=== PATIENT | female | born 1930 | race Caucasian/White ===

== ENCOUNTER → 2018-03-27 | Outpatient (CLI) | payer MEDICARE, OTHER ==
[2018-03-27 17:31] LABS: HEMATOCRIT 33.3 % (36.0-47.0); HEMOGLOBIN 10.4 g/dL (12.0-15.5); MEAN CORPUSCULAR HEMOGLOBIN 27.1 pg (27.0-33.4); MEAN CORPUSCULAR HGB CONC 31.3 g/dL (32.0-36.0); MEAN CORPUSCULAR VOLUME 87 fl (80-97); PLATELET COUNT 408 10^3/uL (150-450); RED BLOOD COUNT 3.84 10^6/uL (3.72-5.28); RED CELL DISTRIBUTION WIDTH 16.8 % (11.5-14.0); WHITE BLOOD COUNT 8.7 10^3/uL (4.0-10.5)
== END ==
LOC: OD 16:43
PROVIDERS: ATTEND Internal Medicine Nephrology
DX: N18.9 Chronic kidney disease, unspecified (principal)
CPT/HCPCS: 36415; 85027

== ENCOUNTER 2018-04-05 19:46 | Emergency (ER) | payer MEDICARE, OTHER ==
--- NOTE | 2018-04-05 20:51 | ER Document Report ---
ED General - General Chief Complaint: Passed Out Prior to Arrival Stated Complaint: DIZZY/LIGHT HEADED Time Seen by Provider: 04/05/18 20:14 Notes: Patient is an 87-year-old female with a past medical history of T-cell lymphoma , hypertension, recurrent episodes of syncope, chronic kidney disease, known history of chronic anemia who presents after having an episode of syncope while at dinner tonight. Family at the bedside does provide majority of the history as the patient initially seems to either not recall what happened or denies that anything is wrong. Family reports that the patient would intermittently hold her head in her hands while at the dinner table tonight, appeared to be getting intermittently lightheaded. They state that the patient looked like she went to get out of her chair, go to the living room and sit in her recliner. They attempted to help her stand up and at that point she stated that she felt very unwell, they sat her back down and she apparently lost consciousness. This lasted for approximately 1-2 minutes and spontaneously resolved. Since that time the patient has returned to her baseline without intervention. Daughter at the bedside states that the patient has had several episodes similar to this in the past, most recently approximately 6 months ago but has never had a workup. She does state that she was concerned tonight because the patient seemed to appear more ill prior to and during the episode that she had in the past. She has no known history of congestive heart failure. The patient currently denies symptoms of any kind. She repeatedly states that she does not want to be here, feels like she should not have, and would like to go home. Family did not note that anything seems to trigger these episodes. They do resolve spontaneously. TRAVEL OUTSIDE OF THE [place] IN LAST 30 DAYS: No Past Medical History - General Information source: Patient - Social History Smoking Status: Former Smoker Frequency of alcohol use: None Drug Abuse: None Lives with: Family Family History: Reviewed & Not Pertinent Patient has suicidal ideation: No Patient has homicidal ideation: No Renal/ Medical History: Denies: Hx Peritoneal Dialysis Review of Systems - Review of Systems Notes: Constitutional: Negative for fever. HENT: Negative for sore throat. Eyes: Negative for visual changes. Cardiovascular: Negative for chest pain. Positive for syncope Respiratory: Negative for shortness of breath. Gastrointestinal: Negative for abdominal pain, vomiting or diarrhea. Genitourinary: Negative for dysuria. Musculoskeletal: Negative for back pain. Skin: Negative for rash. Neurological: Negative for headaches, weakness or numbness. 10 point ROS negative except as marked above and in HPI. Physical Exam - Vital signs Vitals: Pulse Ox 99 04/05/18 19:52 Interpretation: Normal Notes: PHYSICAL EXAMINATION: GENERAL: Well-appearing, well-nourished and in no acute distress. HEAD: Atraumatic, normocephalic. EYES: Pupils equal round and reactive to light, extraocular movements intact, sclera anicteric, conjunctiva are normal. ENT: nares patent, oropharynx clear without exudates. Moderately dry mucous membranes. NECK: Normal range of motion, supple without lymphadenopathy LUNGS: Breath sounds clear to auscultation bilaterally and equal. No wheezes rales or rhonchi. HEART: Regular rate and rhythm, 3 out of 6 systolic ejection murmur ABDOMEN: Soft, nontender, normoactive bowel sounds. No guarding, no rebound. No masses appreciated. EXTREMITIES: Normal range of motion, no pitting or edema. No cyanosis. NEUROLOGICAL: No focal neurological deficits. Moves all extremities spontaneously and on command. PSYCH: Alert, oriented. SKIN: Warm, Dry, normal turgor, no rashes or lesions noted. Course - Re-evaluation Re-evalutation: 04/05/18 20:50 Presentation of syncope of unclear etiology. Patient normotensive, alert, without focal neurologic deficits at time of arrival. Denies syncope was during exertion. No preceding symptoms of palpitations, chest pain, or shortness of breath. Patient asymptomatic at time of arrival. EKG is without evidence of HCOM , right heart strain, ST changes to suggest ischemia, prolong QTc, delta wave, epsilon wave, or Brugada syndrome. Patient denies any family history of sudden cardiac , personal history of of structural heart disease. Patient denies any symptoms to suggest an acute PE, NV, TAD, SAH, seizure, or acute GI bleed as the etiology of their syncope today. Given patient's advanced age, labs were requested which the patient initially declined. However, a capacity assessment is failed by the patient as she is unable to explain why she is declining blood work, unable to complete a risks and benefits assessment despite 3 separate attempts to explain why we want blood work, what diagnoses we could be missing, and will would be the therapy for each individual concerning pathology. We did review specifically that given the patient's underlying renal dysfunction we would worry about electrolytes abnormalities, history of anemia we would be worried about deterioration of her hemoglobin, and a troponin to monitor for any possible cardiac events tonight. Given that the patient did not have capacity, her 3 daughters at the bedside on the patient 's behalf did request completion of this blood work. 04/05/18 22:43 Patient's laboratories show mild anemia at 9.4, a slight down trend from the past several weeks. The patient has repeatedly declined iron infusion as an outpatient as well as colonoscopy or endoscopy workup for possible GI source. She continues to do so today. Family is in agreement with her refusal. Electrolytes overall unremarkable, very mild hyperkalemia at 5.1 which is not clinically significant at this point. Patient and family are agreeable to going home at this point. I have advised outpatient echocardiogram and cardiology follow-up. At this time will discharge with return precautions and follow-up recommendations. Verbal discharge instructions given a the bedside and opportunity for questions given. Medication warnings reviewed. Patient is in agreement with this plan and has verbalized understanding of return precautions and the need for primary care follow-up in the next 24-72 hours. - Vital Signs Vital signs: Temp Pulse Resp BP Pulse Ox 98.3 F 71 19 129/46 H 97 04/05/18 23:15 04/05/18 23:15 04/05/18 23:15 04/05/18 20:02 04/05/18 23:15 - Laboratory Result Diagrams: 04/05/18 21:17 04/05/18 21:17 Laboratory results interpreted by me: 04/05/18 04/05/18 21:17 21:17 WBC 13.0 H RBC 3.45 L Hgb 9.4 L Hct 29.6 L MCHC 31.7 L RDW 17.6 H Potassium 5.1 H BUN 34 H Creatinine 1.48 H Est GFR ( Amer) 40 L Est GFR (Non-Af Amer) 33 L Glucose 124 H - EKG Interpretation by Me Additional EKG results interpreted by me: 04/05/18 22:43 Sinus rhythm. Rate 76. No ST elevations or depressions. QTC is 441. Discharge - Discharge Clinical Impression: Chronic kidney disease Qualifiers: Chronic kidney disease stage: unspecified stage Qualified Code(s): N18.9 - Chronic kidney disease, unspecified Syncope Qualifiers: Syncope type: unspecified Qualified Code(s): R55 - Syncope and collapse Anemia Qualifiers: Anemia type: other cause Other causes of anemia: other cause, not classified Qualified Code(s): D64.89 - Other specified anemias Condition: Good Disposition: HOME, SELF-CARE Additional Instructions: You were seen today after an episode of passing out. Your EKG here is normal. At this time, we do not feel that your episode of passing out was from any life- threatening cause. Please drink plenty of fluids over the next several days. Please follow-up with your general doctor for referral to cardiology for consideration of an echocardiogram. Return to emergency department if you have any further episodes of syncope, headache, weakness, numbness, chest pain, or shortness of breath. Referrals: LUIS VANN MD [Primary Care Provider] - Follow up as needed
[2018-04-05 21:36] LABS: HEMATOCRIT 29.6 % (36.0-47.0); HEMOGLOBIN 9.4 g/dL (12.0-15.5); MEAN CORPUSCULAR HEMOGLOBIN 27.2 pg (27.0-33.4); MEAN CORPUSCULAR HGB CONC 31.7 g/dL (32.0-36.0); MEAN CORPUSCULAR VOLUME 86 fl (80-97); PLATELET COUNT 439 10^3/uL (150-450); RED BLOOD COUNT 3.45 10^6/uL (3.72-5.28); RED CELL DISTRIBUTION WIDTH 17.6 % (11.5-14.0)
[2018-04-05 22:01] LABS: ANION GAP 11 (5-19); BLOOD UREA NITROGEN 34 mg/dL (7-20); CALCIUM 9.3 mg/dL (8.4-10.2); CARBON DIOXIDE 29 mmol/L (22-30); CHLORIDE 103 mmol/L (98-107); GLUCOSE 124 mg/dL (75-110); POTASSIUM 5.1 mmol/L (3.6-5.0); SODIUM 143.1 mmol/L (137-145)
[2018-04-05 22:52] VITALS: BP 129/46
--- NOTE | 2018-04-06 19:14 | EKG REPORT ---
SEVERITY:- NORMAL ECG - SINUS RHYTHM : Confirmed by: Mary Smyth MD 06-Apr-2018 19:14:17
== END 2018-04-05 23:15 | disposition home or self-care (01) ==
LOC: ER 19:46
DX: R55 Syncope and collapse (principal); I12.9 Hypertensive chronic kidney disease with stage 1 through stage 4 chronic kidney disease, or unspecified chronic kidney disease; N18.9 Chronic kidney disease, unspecified; D63.1 Anemia in chronic kidney disease; E87.5 Hyperkalemia; Z85.72 Personal history of non-Hodgkin lymphomas; Z87.891 Personal history of nicotine dependence
CPT/HCPCS: 36415; 80048; 84484; 85027; 93005; 93010; 99284

== ENCOUNTER 2018-04-12 09:51 | Outpatient (CLI) | payer MEDICARE, OTHER ==
[2018-04-12 10:25] VITALS: BP 148/55
[2018-04-12] MEDS ORDERED: FERRIC CARBOXYMALTOSE 750 MG in NORMAL SALINE 250 ML IV PRN (10:29)
== END 2018-04-12 11:44 | disposition home or self-care (01) ==
LOC: II 09:51 → 5TH 09:53 → II 11:44
PROVIDERS: ATTEND Internal Medicine Nephrology
PROC: 3E033GC Introduction of Other Therapeutic Substance into Peripheral Vein, Percutaneous Approach (ICD-10-PCS; principal; 2018-04-12)
DX: D50.8 Other iron deficiency anemias (principal)
CPT/HCPCS: 96367; J7050; J1439; 96365

== ENCOUNTER 2018-08-28 07:59 | Inpatient (IN) | payer MEDICARE, OTHER ==
--- NOTE | 2018-08-28 08:23 | ER Document Report ---
ED General - General Stated Complaint: WEAKNESS Time Seen by Provider: 08/28/18 08:23 Mode of Arrival: Medic Information source: Patient, Relative TRAVEL OUTSIDE OF THE [place] IN LAST 30 DAYS: No - HPI Notes: 87-year-old female with a history of T-cell lymphoma, hypertension, recurrent episodes of syncope P, chronic renal disease, chronic anemia presents to the ED via EMS with daughter who is her healthcare proxy for complaints of dizziness, weakness and then new onset rapid A. fib. Daughter states that when she got out of her bed this morning, was dizzy and weak, daughter called EMS where they did an EKG, she was in rapid A. fib and is currently in rapid A. fib. Patient has no known history of cardiac disorder aside from hypertension, patient does not have a history of heart failure. Patient does not take blood thinners, does not take a baby aspirin. patient was seen by her primary care provider, Dr. Thomas last Monday, they did recommend her following up with cardiology however the referral has been sent the patient has not been seen by cardiology, patient also follows with Dr. de la vega for nephrology and did see Dr. Eli however is going to be seeing Dr. Rios for oncology for her T-cell lymphoma. 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 Denies fevers, chills, chest pain,palpitations, shortness of breath, dyspnea, nausea, vomiting, diarrhea, melena, coffee-ground emesis, abdominal pain, hematuria,blurred vision, dspeech changes, LH, dizziness, syncope, headaches, wheezing, neck pain, weakness, bowel or bladder dysfunction, saddle anesthesia, numbness or tingling in bilateral upper or lower extremities equally, muscle paralysis, or rash. Noted weakness throughout body. No m edications, foods or travel. - Related Data Allergies/Adverse Reactions: No Known Allergies Allergy (Unverified 04/12/18 10:35) Past Medical History - General Information source: Patient, Relative - Social History Smoking Status: Unknown if Ever Smoked Family History: Reviewed & Not Pertinent, Hypertension - Past Medical History Cardiac Medical History: Reports: Hx Hypercholesterolemia, Hx Hypertension Renal/ Medical History: Denies: Hx Peritoneal Dialysis Past Surgical History: Reports: Hx Breast Surgery - tumor removed left breast Review of Systems - Review of Systems Constitutional: No symptoms reported EENT: No symptoms reported Cardiovascular: See HPI Respiratory: No symptoms reported Gastrointestinal: No symptoms reported Genitourinary: No symptoms reported Female Genitourinary: No symptoms reported Musculoskeletal: No symptoms reported Skin: No symptoms reported Hematologic/Lymphatic: No symptoms reported Neurological/Psychological: See HPI Physical Exam - Vital signs Vitals: Temp Pulse Resp BP Pulse Ox 98.1 F 132 H 16 117/58 L 100 08/28/18 08:09 08/28/18 08:09 08/28/18 08:09 08/28/18 08:09 08/28/18 08:09 - Notes Notes: PHYSICAL EXAMINATION: GENERAL: Chronically ill well-nourished, and in no acute distress. HEAD: Atraumatic, normocephalic. EYES: Pupils equal round and reactive to light, extraocular movements intact, conjunctiva are normal. ENT: Nares patent, oropharynx clear without exudates. Moist mucous membranes. NECK: Normal range of motion, supple without lymphadenopathy LUNGS: Breath sounds clear to auscultation bilaterally and equal. No wheezes rales or rhonchi. HEART: A. fib and RVR and rhythm without murmurs ABDOMEN: Soft, nontender, nondistended abdomen. No guarding, no rebound. No masses appreciated. Female : deferred Musculoskeletal: Normal range of motion, no pitting or edema. No cyanosis. NEUROLOGICAL: Cranial nerves grossly intact. Normal speech, normal gait. Normal sensory, motor exams PSYCH: Normal mood, normal affect. SKIN: Warm, Dry, normal turgor, no rashes or lesions noted. Multiple skin lesions on buttocks and arm Course - Re-evaluation Re-evalutation: 08/28/18 09:30 79-year-old female afebrile in rapid A. fib, in no distress with a significant medical history T-cell lymphoma, chronic renal disease, hypertension, chronic anemia with episodes of syncope in the past. CBC shows a hemoglobin of 6.8, hematocrit 18.9, when H&H was checked in May 2018, hemoglobin was 7.7 and hematocrit was 24.1, BNP 6970, creatinine is 1.14, BUN 30, potassium is 4.1, chest x-ray does show right pleural effusion or thickening, no cardiomegaly, no pneumothorax. Patient is not on any anticoagulation, is not taking baby aspirin. No history of anemia, heart failure. CMP negative for hepatic dysfunction, no electrolyte disturbances. Urinalysis does show nitrate, no proteinuria or hematuria or glucosuria. Patient started on diltiazem loading dose and maintenance dose this is A. fib with tachycardia at 130's. consulted with Dr. Jemal Barros, supervising physician, regarding patient, who also evaluated patient face to face at bedside. Due to chaxDs2-VASc Score of 3, and a hx of chronic anemia with T-cell lymphoma, anticoagulation would not be advised at this time. And maintenance for rapid A. fib initiated. Patient's heart rate is still in the 130s, digoxin 0.025mg per Dr. Barros for patient remaining rapid A. fib with slight heart failure, patient remains afebrile in rapid A. fib, no distress on re evaluation. Due to patient's age, risk of bleeding with a H&H as a days, anticoagulation will not be initiated at this time and patient and daughter both agreeable to this plan of care, daughter is power of estate planning attorney. T ype and screen ordered for transfusion. Dr. Richard Delgado, hospitalist will admit to [facility] PCU with diltiazem drip, Dr. Smyth, just programmer numerical control, consulted, due to patient having low H&H, will replace 2 units of packed red blood cells will discuss with hospitalist. Patient admitted to medical service with consult of cardiology. Patient and daughter both verbalized understanding of this plan of care and agree with plan of care. All questions and concerns answered by this provider. 08/28/18 15:22 - Vital Signs Vital signs: Temp Pulse Resp BP Pulse Ox 98.0 F 131 H 15 117/65 100 08/28/18 12:39 08/28/18 08:09 08/28/18 13:36 08/28/18 13:36 08/28/18 13:36 - Laboratory Result Diagrams: 08/28/18 08:45 08/28/18 08:45 Laboratory results interpreted by me: 08/28/18 08/28/18 08/28/18 08:45 08:45 08:45 RBC 2.19 L Hgb 6.2 L Hct 18.9 L RDW 18.6 H Seg Neutrophils % 85.0 H Lymphocytes % 7.7 L Chloride 109 H BUN 30 H Est GFR ( Amer) 54 L Est GFR (Non-Af Amer) 45 L Glucose 73 L Calcium 7.8 L Alkaline Phosphatase 153 H NT-Pro-B Natriuret Pep 6970 H Total Protein 4.5 L Albumin 2.0 L Urine Nitrite Crossmatch 08/28/18 08/28/18 09:48 11:35 RBC Hgb Hct RDW Seg Neutrophils % Lymphocytes % Chloride BUN Est GFR ( Amer) Est GFR (Non-Af Amer) Glucose Calcium Alkaline Phosphatase NT-Pro-B Natriuret Pep Total Protein Albumin Urine Nitrite POSITIVE H Crossmatch See Detail - EKG Interpretation by Ga Rhythm: A.Fib Discharge - Discharge Clinical Impression: Rapid atrial fibrillation, T-cell lymphoma Anemia Qualifiers: Chronic kidney disease stage: stage 3 (moderate) CHF (congestive heart failure) Qualifiers: Heart failure type: unspecified Heart failure chronicity: unspecified Qualified Code(s): I50.9 - Heart failure, unspecified Condition: Stable Disposition: ADMITTED INPATIENT Admitting Provider: Danny (Hospitalist) Unit Admitted: ICU
[2018-08-28] MEDS ORDERED: DILTIAZEM HCL INJ 25 MG/5 ML VIAL IV ONE ×2 (08:52→09:37)
[2018-08-28 09:04] LABS: ABSOLUTE LYMPHOCYTES (AUTO) 0.7 10^3/uL (0.5-4.7); ABSOLUTE MONOCYTES (AUTO) 0.6 10^3/uL (0.1-1.4); ABSOLUTE NEUT (AUTO) 7.7 10^3/uL (1.7-8.2); BASOPHILS % (AUTO) 0.2 % (0-2); EOSINOPHILS % (AUTO) 0.2 % (0-6); HEMATOCRIT 18.9 % (36.0-47.0); LYMPHOCYTES % (AUTO) 7.7 % (13-45); MEAN CORPUSCULAR HEMOGLOBIN 28.2 pg (27.0-33.4); MEAN CORPUSCULAR HGB CONC 32.7 g/dL (32.0-36.0); MEAN CORPUSCULAR VOLUME 86 fl (80-97); MONOCYTES % (AUTO) 6.9 % (3-13); PLATELET COUNT 405 10^3/uL (150-450); RED BLOOD COUNT 2.19 10^6/uL (3.72-5.28); RED CELL DISTRIBUTION WIDTH 18.6 % (11.5-14.0); TOTAL CELLS COUNTED % (AUTO) 100 %; WHITE BLOOD COUNT 9.1 10^3/uL (4.0-10.5)
[2018-08-28 09:10] LABS: HEMOGLOBIN 6.2 g/dL (12.0-15.5)
[2018-08-28 09:16] LABS: ALANINE AMINOTRANSFERASE 46 U/L (9-52); ALKALINE PHOSPHATASE 153 U/L (38-126); ANION GAP 5 (5-19); ASPARTATE AMINO TRANSFERASE 16 U/L (14-36); BILIRUBIN,DIRECT 0.3 mg/dL (0.0-0.4); BILIRUBIN,TOTAL 0.3 mg/dL (0.2-1.3); BLOOD UREA NITROGEN 30 mg/dL (7-20); CALCIUM 7.8 mg/dL (8.4-10.2); CARBON DIOXIDE 25 mmol/L (22-30); CHLORIDE 109 mmol/L (98-107); CREATINE KINASE 51 U/L (30-135); GLUCOSE 73 mg/dL (75-110); POTASSIUM 4.1 mmol/L (3.6-5.0); SODIUM 139.4 mmol/L (137-145); TOTAL PROTEIN 4.5 g/dL (6.3-8.2)
--- NOTE | 2018-08-28 09:26 | RADIOLOGY REPORT (SQ) ---
EXAM DESCRIPTION: CHEST SINGLE VIEW COMPLETED DATE/TIME: 08/28/2018 9:08 am REASON FOR STUDY: new onset a fib COMPARISON: 06/20/2009 EXAM PARAMETERS: NUMBER OF VIEWS: One view. TECHNIQUE: Single frontal radiographic view of the chest acquired. RADIATION DOSE: NA LIMITATIONS: None. FINDINGS: LUNGS AND PLEURA: No opacities, masses or pneumothorax. Possible small right pleural effu ellen and/or pleural thickening. MEDIASTINUM AND HILAR STRUCTURES: No masses. Contour normal. HEART AND VASCULAR STRUCTURES: Cardiomegaly. BONES: No acute findings. HARDWARE: None in the chest. OTHER: No other significant finding. IMPRESSION: Possible small right pleural effusion and/or pleural thickening. No focal airspace opac ity. Cardiomegaly unchanged from prior. TECHNICAL DOCUMENTATION: JOB ID: [id number] [employer]- All Rights Reserved Reading location - IP/workstation name: [email or web address]
[2018-08-28 09:28] LABS: CREATINE KINASE MB 2.13 ng/mL (<4.55)
[2018-08-28 09:31] LABS: INTERNATIONAL RATION (INR) 1.04; PROTHROMBIN TIME 14.1 SEC (11.4-15.4)
[2018-08-28 09:33] LABS: PARTIAL THROMBOPLASTIN TIME 26.9 SEC (23.5-35.8)
[2018-08-28 09:35] LABS: TROPONIN I 0.044 ng/mL
[2018-08-28 09:38] LABS: ANISOCYTOSIS 2+; BURR CELLS 1+; OVALOCYTES 2+; PLATELET COMMENT ADEQUATE; POIKILOCYTOSIS 2+; SCHISTOCYTES 1+; TARGET CELLS SLIGHT
--- NOTE | 2018-08-28 10:13 | EKG REPORT ---
SEVERITY:- ABNORMAL ECG - ATRIAL FIBRILLATION REPOLARIZATION ABNORMALITY, PROB RATE RELATED : Confirmed by: Mary Smyth MD 28-Aug-2018 10:13:14
[2018-08-28] MEDS ORDERED: FUROSEMIDE INJ/PF 40 MG/4 ML SDV IV ONE (10:22)
[2018-08-28 10:23] LABS: APPEARANCE,URINE CLEAR; BILIRUBIN,URINE NEGATIVE (NEGATIVE); COLOR,URINE YELLOW; GLUCOSE, URINE NEGATIVE (NEGATIVE); KETONES,URINE NEGATIVE (NEGATIVE); LEUKOCYTE ESTERASE,URINE NEGATIVE (NEGATIVE); NITRITE,URINE POSITIVE (NEGATIVE); PROTEIN,URINE NEGATIVE (NEGATIVE); URINE SPECIFIC GRAVITY 1.017; UROBILINOGEN,URINE NEGATIVE mg/dL (<2.0)
[2018-08-28] MEDS ORDERED: ASPIRIN 81 MG TABLET, CHEWABLE PO ONE (10:23)
[2018-08-28] MEDS ORDERED: HEPARIN SOD (PORCINE) 1,000 UNIT/ML 10 ML VIAL IV ONE (10:27)
[2018-08-28] MEDS: DILTIAZEM HCL/D5W 125 MG/125 ML RTUINJ IV PRN ×2 (10:30→17:16)
[2018-08-28] MEDS ORDERED: DIGOXIN INJ 0.5 MG/2 ML AMPULE IV ONE (11:32)
[2018-08-28 12:19] LABS: CREATINE KINASE MB 2.39 ng/mL (<4.55); TROPONIN I 0.057 ng/mL
--- NOTE | 2018-08-28 13:47 | ER Document Report ---
Doctor's Note Notes: 08/28/18 13:45 Patient was seen in conjunction with the nurse practitioner. Please see her note correlate with this 1. In short this patient is an 87-year-old female, who presented to the emergency department for evaluation with her daughter, who is in POA. Evidently she had increased weakness, was unsteady on her feet. She was found here to be in atrial fibrillation, new onset. On physical exam she has a harsh holosystolic murmur, heart is irregularly irregular and tachycardic. Lungs show diminished breath sounds throughout but no obvious rales or rhonchi. Laboratory investigations not only found mildly elevated troponin, but also a marketed Ravindra low hemoglobin. According to the daughter she has required blood transfusion as recently as May. Patient was placed on a Cardizem drip and had only moderate improvement in her heart rate. She was further administered digoxin. She remained stable, blood pressure remained within normal limits. Although this patient's chads vas score does indicate an increased risk for CVA, this patient has T-cell lymphoma with multiple cutaneous lesions, as well as a history of significant anemia, likely from a GI source. The patient has refused colonoscopy in the past. I had an extensive conversation with patient's daughter. We are in agreement that the risks of anticoagulation far outweigh the benefits. We will admit the patient for further care.
--- NOTE | 2018-08-28 14:12 | RADIOLOGY REPORT (SQ) ---
EXAM DESCRIPTION: CT CHEST WITHOUT COMPLETED DATE/TIME: 08/28/2018 1:35 pm REASON FOR STUDY: new onset a fib with dizziness COMPARISON: Chest x-ray dated August 28. TECHNIQUE: CT scan performed of the chest without intravenous contrast. Images reviewed with lung, soft tissue and bone windows. Reconstructed coronal and sagittal MPR images reviewed. All images st ored on PACS. All CT scanners at this facility use dose modulation, iterative reconstruction, and/or weight based d osing when appropriate to reduce radiation dose to as low as reasonably achievable (ALARA). [facility]: Dose Right [facility]: CareDose [facility]: Dose Right [facility]: Teradose 4D [facility]: Zingaya RADIATION DOSE: CT Rad equipment meets quality standard of care and radiation dose reduction techniq ues were employed. CTDIvol: 3.3 - 20.1 mGy. DLP: 734 mGy-cm. mGy. LIMITATIONS: No technical limitations. FINDINGS: LUNGS AND PLEURA: Moderate bilateral pleural effusions, right greater than left. Basilar atelectasis. Nodular density in the lateral subpleural left lung measuring 1.8 x 2.4 cm. Lungs othe rwise clear. HILAR AND MEDIASTINAL STRUCTURES: No identified masses or abnormal nodes. Circumscribed fluid collec tion between the ascending aorta and trachea likely fluid in the pericardial recess. No obvious aneu rysm. HEART AND VASCULAR STRUCTURES: No aneurysm. No pericardial effusion. UPPER ABDOMEN: No significant findings. Limited exam. THYROID AND OTHER SOFT TISSUES: No masses. No adenopathy. BONES: No significant finding. Chronic degenerative changes in the spine. HARDWARE: None in the chest. OTHER: No other significant findings. IMPRESSION: MODERATE BILATERAL PLEURAL EFFUSIONS, RIGHT GREATER THAN LEFT, WITH BASILAR ATELECTASIS. NODULAR DENSITY IN THE LATERAL LEFT LUNG BASE MAY BE DUE TO ATELECTASIS OR INFILTRATE. CANNOT EXCL UDE MASS LESION. IF THIS FINDING IS PERSISTENT AND DOES NOT RESOLVE WITH TREATMENT, THEN MAY REQUIRE PET SCAN FOR FURTHER EVALUATION. TECHNICAL DOCUMENTATION: JOB ID: [id number] Quality ID # [id number]: Final reports with documentation of one or more dose reduction techniques (e.g., Au tomated exposure control, adjustment of the mA and/or kV according to patient size, use of iterative reconstruction technique) 2010 [employer]- All Rights Reserved Reading location - IP/workstation name: [email or web address]
--- NOTE | 2018-08-28 14:23 | PDOC H&P ---
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 Jaimee Rios, has refused chemotherapy, received XRT 3 times, left breast and back lymph nodes removed in 2017. History of CKD, nonoliguric, not on hemodialysis, followed by Dr. Castelan as outpatient treated with chronic anemia and has received iron transfusion and PRBC transfusion on 06/02/2018 patient has not received Procrit as per family as coat agent is waiting to talk to her oncologist. Patient has refused colonoscopy in the past. Patient lives at home and her youngest daughter has the power of senior trial attorney. Source of history are the 2 daughters who are accompanying the patient. She was brought to ED by EMS after she complaining of being dizzy, loss of balance, feeling of passing out. As per family they noticed that the patient was trembling and her legs giving out however did not fall, had any syncope or trauma As per family patient denied any palpitation, chest pain, nausea, vomiting, diarrhea, constipation or any urinary symptoms either to this episode. Had a similar episode in 2018 and was brought here at [facility] [place] where she was found to be anemic and she was transfused PRBC and sent home. Family denies any history of cardiac arrhythmia, CKD, CVA or CAD. Patient is alert, oriented x2, cooperative with physical examination, appears weak, does not remember what happened to her today. In ED she was found to be in A. fib, heart rate of 130s, hemoglobin 6.2, BNP 6970 and guaiac negative. Past Medical History Cardiac Medical History: Reports: Hyperlipidema, Hypertension Social History Smoking Status: Never Smoker Drugs: None Family History Family History: Reviewed & Not Pertinent Parental Family History Reviewed: Yes Children Family History Reviewed: Yes Sibling(s) Family History Reviewed.: Yes Medication/Allergy Home Medications: Acetaminophen [Tylenol Extra Strength 500 mg Tablet] 1 tab PO QHS 08/28/18 Acetaminophen [Tylenol Extra Strength 500 mg Tablet] 2 tab PO NOON 08/28/18 Clobetasol Propionate [Temovate 0.05% Topical Soln 25 Ml Bottle] 1 applic TOP QHS 08/28/18 Cyanocobalamin (Vitamin B-12) [Vitamin B-12 1000 Mcg Tablet] 1 tab PO DAILY 08/28/18 Ferrous Sulfate [Feosol 325 mg Tablet] 325 mg PO BIDBS 08/28/18 Furosemide [Lasix 20 mg Tablet] 20 mg PO QAM 08/28/18 Hydrocodone/Acetaminophen [[place] 5-325 mg Tablet] 1 tab PO BIDBS 08/28/18 Multivitamin [Tab-A-Khushi (Multiple Vitamin) Tablet] 1 tab PO DAILY 08/28/18 Petrolatum,White [Aquaphor] 1 applic TP QHS 08/28/18 Prazosin HCl [Minipress] 2 mg PO Q8 08/28/18 Silver Sulfadiazine [Silvadene 1% Cream 50 gm Tube] 1 applic TP DAILY 08/28/18 Simvastatin [Zocor 20 mg Tablet] 20 mg PO QHS 08/28/18 Allergies/Adverse Reactions: No Known Allergies Allergy (Unverified 04/12/18 10:35) Review of Systems Review of Systems: as per HPI Physical Exam Vital Signs: Temp Pulse Resp BP Pulse Ox 98.0 F 131 H 15 117/65 100 08/28/18 12:39 08/28/18 08:09 08/28/18 13:36 08/28/18 13:36 08/28/18 13:36 Intake & Output 08/27/18 08/28/18 08/29/18 06:59 06:59 06:59 Intake Total 4 Balance 4 Weight 73.2 kg General appearance: PRESENT: no acute distress, mild distress, well-developed, well-nourished Neck exam: ABSENT: carotid bruit, JVD, lymphadenopathy, thyromegaly Respiratory exam: PRESENT: clear to auscultation [place]. ABSENT: rales, rhonchi, wheezes Cardiovascular exam: PRESENT: irregular rhythm, systolic murmur. ABSENT: diastolic murmur, rubs GI/Abdominal exam: PRESENT: normal bowel sounds, soft. ABSENT: distended, guarding, mass, organolmegaly, rebound, tenderness Extremities exam: PRESENT: full ROM. ABSENT: calf tenderness, clubbing, pedal edema Neurological exam: PRESENT: alert, awake, oriented to person, oriented to place, CN II-XII grossly intact Skin exam: PRESENT: other - Extensive mixed skin lesions on the lower back and bilateral buttocks with weeping and crusting, no sign of infection or bleeding. Results Laboratory Results: 08/28/18 08:45 08/28/18 08:45 08/28/18 08/28/18 08/28/18 08:45 08:45 08:45 WBC 9.1 RBC 2.19 L Hgb 6.2 L Hct 18.9 L MCV 86 MCH 28.2 MCHC 32.7 RDW 18.6 H Plt Count 405 Seg Neutrophils % 85.0 H Lymphocytes % 7.7 L Monocytes % 6.9 Eosinophils % 0.2 Basophils % 0.2 Absolute Neutrophils 7.7 Absolute Lymphocytes 0.7 Absolute Monocytes 0.6 Absolute Eosinophils 0.0 Absolute Basophils 0.0 Sodium 139.4 Potassium 4.1 Chloride 109 H Carbon Dioxide 25 Anion Gap 5 BUN 30 H Creatinine 1.14 Est GFR ( Amer) 54 L Est GFR (Non-Af Amer) 45 L Glucose 73 L Lactic Acid 1.7 Calcium 7.8 L Total Bilirubin 0.3 AST 16 ALT 46 Alkaline Phosphatase 153 H Total Protein 4.5 L Albumin 2.0 L Urine Color Urine Appearance Urine pH Ur Specific [place] Urine Protein Urine Glucose (UA) Urine Ketones Urine Blood Urine Nitrite Ur Leukocyte Esterase Urine WBC (Auto) Urine RBC (Auto) Blood Type Antibody Screen 08/28/18 08/28/18 09:48 11:35 WBC RBC Hgb Hct MCV MCH MCHC RDW Plt Count Seg Neutrophils % Lymphocytes % Monocytes % Eosinophils % Basophils % Absolute Neutrophils Absolute Lymphocytes Absolute Monocytes Absolute Eosinophils Absolute Basophils Sodium Potassium Chloride Carbon Dioxide Anion Gap BUN Creatinine Est GFR ( Amer) Est GFR (Non-Af Amer) Glucose Lactic Acid Calcium Total Bilirubin AST ALT Alkaline Phosphatase Total Protein Albumin Urine Color YELLOW Urine Appearance CLEAR Urine pH 5.0 Ur Specific [place] 1.017 Urine Protein NEGATIVE Urine Glucose (UA) NEGATIVE Urine Ketones NEGATIVE Urine Blood NEGATIVE Urine Nitrite POSITIVE H Ur Leukocyte Esterase NEGATIVE Urine WBC (Auto) 2 Urine RBC (Auto) 0 Blood Type B POSITIVE Antibody Screen NEGATIVE 08/28/18 08/28/18 08/28/18 08:45 08:45 11:35 Creatine Kinase 51 50 CK-MB (CK-2) 2.13 Troponin I 0.044 NT-Pro-B Natriuret Pep 6970 H 08/28/18 11:35 Creatine Kinase CK-MB (CK-2) 2.39 Troponin I 0.057 NT-Pro-B Natriuret Pep Impressions: Chest X-Ray 08/28/18 08:42 IMPRESSION: Possible small right pleural effusion and/or pleural thickening. No focal airspace opacity. Cardiomegaly unchanged from prior. Assessment and Plan - Diagnosis (1) Atrial fibrillation Is this a current diagnosis for this admission?: Yes Plan: New onset. Denies any previous cardiac history. CHADsVASC2 3. Not a candidate for anticoagulation due to recurrent falls, bleeding tendency, underlying T-cell lymphoma. Per family patient cannot tolerate aspirin as she has had epistaxis due to aspirin. Continue Cardizem drip, digitalis as needed. Will switch to p.o. Cardizem/beta- blockers. 2D echo. Consult cardiology. (2) Pre-syncope Is this a current diagnosis for this admission?: Yes Plan: Due to #1. Monitor vitals. Monitor hemodynamics. Order orthostatic vitals. (3) CHF (congestive heart failure) Qualifiers: Heart failure type: unspecified Heart failure chronicity: unspecified Qualified Code(s): I50.9 - Heart failure, unspecified Is this a current diagnosis for this admission?: Yes Plan: Based on physical examination and laboratory finding. BNP more than 6000. Monitor volume status, 2D echo. Low-dose diuretics guided by her vitals. Cardiac diet. 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 Patient been followed up by oncologist as outpatient. Per family she has refused chemotherapy but has received radiation 3 times. We will continue wound care and outpatient follow-up with oncologist. (5) Diabetes Qualifiers: Diabetes mellitus type: type 2 Is this a current diagnosis for this admission?: No Plan: Controlled. Continue diabetic diet, sliding scale insulin. (7) Anemia Qualifiers: Chronic kidney disease stage: stage 3 (moderate) Is this a current diagnosis for this admission?: No Plan: Likely combination of CKD and underlying T-cell lymphoma. Supportive transfusions. Followed by Dr. Castelan nephrology as outpatient. Received iron transfusion and PRBC transfusion in the past. Received Procrit as per family because coat agent waiting to discuss Procrit safety setting of T-cell lymphoma with her oncologist. 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 Patient been followed up by oncologist as outpatient. Per family she has refused chemotherapy but has received radiation 3 times. We will continue wound care and outpatient follow-up with oncologist.
[2018-08-28] MEDS ORDERED: NORMAL SALINE 250 ML IV PRN ×2 (14:31)
[2018-08-28] MEDS ORDERED: ONDANSETRON 4 MG TAB.RAPDIS PO PRN (14:36)
[2018-08-28] MEDS: ACETAMINOPHEN 325 MG TABLET PO PRN ×2 (16:28→20:30)
--- NOTE | 2018-08-28 21:01 | Operative Report ---
Nonrecallable Operative Report DATE OF SURGERY: 08/28/18 PREOPERATIVE DIAGNOSIS: 1. Phlebosclerosis. 2. Atrial fibrillation with rapid ventricular rate. POSTOPERATIVE DIAGNOSIS: Same as above OPERATION: 1. Ultrasound-guided central venous puncture. 2. Left internal jugular vein central line placement. SURGEON: EVA HENRY ANESTHESIA: Local TISSUE REMOVED OR ALTERED: None COMPLICATIONS: None apparent ESTIMATED BLOOD LOSS: Minimal PROCEDURE: Drains/implants: Left internal jugular vein central line at 14 cm. Procedure in detail: After informed consent was obtained from the patient's daughter, she was laid in the Trendelenburg position in the hospital room. The area of the left neck and chest were prepped and draped in a normal sterile fashion. The ultrasound was used to identify the left internal jugular vein. It was compressible with normal flow. Under direct ultrasonic guidance the supplied access needle was used to cannulate the left internal jugular vein. Dark venous, nonpulsatile blood was returned in the syringe. The wire was inserted easily. The wire was confirmed to be within the lumen of the vein using the ultrasound device. The catheter was then slid over the wire using a modified Seldinger technique. The catheter was sutured in place. A dressing was placed, and the procedure was concluded. All sponge, instrument, and needle counts were correct. Condition: Fair.
[2018-08-28] MEDS: FAMOTIDINE 20 MG TABLET PO SCH (21:32)
--- NOTE | 2018-08-28 22:26 | RADIOLOGY REPORT (SQ) ---
EXAM DESCRIPTION: XR CHEST 1 VIEW COMPLETED DATE/TME: 08/28/2018 00:00 CLINICAL HISTORY: 87 years, Female, c-line COMPARISON: Prior chest x-ray from 9:10 AM of today's date NUMBER OF VIEWS: 1 TECHNIQUE: Portable chest LIMITATIONS: None. FINDINGS: Heart size normal. Atheromatous change thoracic aorta. Osteopenia. Central venous catheter with the tip in the SVC. No pneumothorax. Small right pleural effusion. IMPRESSION: Tip of the central line in the SVC. No pneumothorax. Other findings are stable copyright 2010 [employer]- All Rights Reserved
[2018-08-29 08:12] LABS: HEMATOCRIT 24.8 % (36.0-47.0); MEAN CORPUSCULAR HEMOGLOBIN 30.2 pg (27.0-33.4); MEAN CORPUSCULAR HGB CONC 34.2 g/dL (32.0-36.0); MEAN CORPUSCULAR VOLUME 88 fl (80-97); RED BLOOD COUNT 2.82 10^6/uL (3.72-5.28); RED CELL DISTRIBUTION WIDTH 16.9 % (11.5-14.0); WHITE BLOOD COUNT 10.1 10^3/uL (4.0-10.5)
[2018-08-29 08:18] LABS: HEMOGLOBIN 8.5 g/dL (12.0-15.5)
[2018-08-29 08:33] LABS: ANION GAP 5 (5-19); BLOOD UREA NITROGEN 29 mg/dL (7-20); CALCIUM 7.7 mg/dL (8.4-10.2); CARBON DIOXIDE 25 mmol/L (22-30); CHLORIDE 109 mmol/L (98-107); GLUCOSE 70 mg/dL (75-110); POTASSIUM 4.1 mmol/L (3.6-5.0); SODIUM 138.5 mmol/L (137-145)
[2018-08-29 08:38] LABS: ABSOLUTE LYMPHOCYTES# (MANUAL) 0.7 10^3/uL (0.5-4.7); ABSOLUTE MONOCYTES # (MANUAL) 0.3 10^3/uL (0.1-1.4); ABSOLUTE NEUTROPHILS# (MANUAL) 9.1 10^3/uL (1.7-8.2); BAND NEUTROPHILS % (MANUAL) 1 % (3-5); BASOPHILS % (MANUAL) 0 % (0-2); EOSINOPHILS % (MANUAL) 0 % (0-6); LYMPHOCYTES % (MANUAL) 7 % (13-45); MONOCYTES % (MANUAL) 3 % (3-13); SEGMENTED NEUTROPHILS % (MAN) 89 % (42-78); TOTAL CELLS COUNTED 100
[2018-08-29 08:40] LABS: ANISOCYTOSIS 1+; BURR CELLS SLIGHT; OVALOCYTES SLIGHT; PLATELET CLUMPS PRESENT; PLATELET LARGE PRESENT; POIKILOCYTOSIS SLIGHT; POLYCHROMASIA SLIGHT; SCHISTOCYTES SLIGHT
[2018-08-29 08:41] LABS: PLATELET COMMENT ADEQUATE; PLATELET COUNT 372 10^3/uL (150-450)
--- NOTE | 2018-08-29 10:21 | ADVANCED CARE ---
- Diagnosis (1) Atrial fibrillation Diagnosis Current: Yes (2) Pre-syncope Diagnosis Current: Yes (3) CHF (congestive heart failure) Diagnosis Current: Yes (4) T-cell lymphoma Diagnosis Current: Yes (5) Diabetes Diagnosis Current: Yes (6) CKD (chronic kidney disease) Diagnosis Current: Yes (7) Anemia Diagnosis Current: Yes (8) Mycosis fungoides Diagnosis Current: Yes Resuscitation Status: Do Not Resuscitate Discussion: Had an extensive discussion with daughter who is POA about patient's prognosis and multiple comorbidities. Patient and family decided to switch CODE STATUS to DNR at this point.
[2018-08-29] MEDS ORDERED: FERRIC CARBOXYMALTOSE INJ 750 MG/15 ML VIAL IV ONE (11:00)
--- NOTE | 2018-08-29 11:22 | PDOC CONSULTATION ---
Consultation Consult Date: 08/29/18 Attending physician:: FRAN LOPEZ Consult reason:: I was asked to see the patient due to severe anemia and chronic kidney disease. 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 Historian is the patient's daughter at bedside. Daughter said that yesterday she was trying to help the patient to go to the bathroom and it was unusually difficult for her to get up. When she finally started walking with her walker she complained of feeling dizzy and finally lost her balance and her legs gave out. Then they called the EMS. Patient has some mild shortness of breath and was just recently started on home oxygen. Otherwise there was no note of any chest pains, cough, fever, nausea, vomiting, or diarrhea. The patient herself just states that she feels tired and weak but no other complaints otherwise. In the emergency room patient was found in atrial fibrillation with rapid ventricular rate of 130. Her initial hemoglobin was also low at 6.2 with negative stool for occult blood. Patient was started on Cardizem drip. She was also given 2 units of packed RBC. Her kidney function on admission is at baseline with BUN of 30, creatinine of 1.14 and estimated GFR 45. Today she had a BUN of 29, creatinine 1.08 and estimated GFR 48. Last time I saw her she had a blood work on July 12, 2018 with BUN of 20, creatinine 1.98 and EGFR of 52. In terms of her anemia this is multifactorial due to bleeding T-cell lymphoma cutaneous lesions, iron deficiency and chronic kidney disease. Patient had refused chemotherapy when she saw Dr. Rios back in 2016. She underwent radiation therapy of skin lesions in 2018. I gave her an IV iron infusion with Injectafer in April 2018 and she had had a couple of units of blood transfusion in May 2018. Last month I actually recommended that she goes back to her radiation oncologist and to Dr. Rios for any other treatment plan for this intermittent bleeding cutaneous T-cell lymphoma lesions. Daughter said that she had seen Dr. Smith from radiation oncology who thinks that the radiation is not working so much and recommended that she goes back to see Dr. Rios. She is supposed to have an appointment with Dr. Rios on September 19. Past Medical History Cardiac Medical History: Reports: Hyperlipidemia, Hypertension-primary, Other - Heart murmur Endocrine Medical History: Reports: Diabetes Mellitus Type 2 - On diet Renal/ Medical History: Reports: Chronic Kidney Disease Stage III, Other - Renal angiomyolipoma Malignancy Medical History: Reports: Lymphoma - Non-Hodgkin's T-cell lymphoma Psychiatric Medical History: Reports: Dementia Hematology Medical History: Reports Anemia of Chronic Kidney Disease, Reports Iron Deficiency Anemia, Reports B12 Deficiency Anemia Past Surgical History Past Surgical History: Reports: Splenectomy Social History Information Source: Relative Lives with: Family - Daughter Smoking Status: Never Smoker Frequency of Alcohol Use: None Hx Recreational Drug Use: No Drugs: None Hx Prescription Drug Abuse: No - Advance Directive Resuscitation Status: Do Not Resuscitate Family History Family History: DM - Mother and sister, Hypertension - Father, Malignancy - Stomach cancer on her brother, sister has uterine cancer Parental Family History Reviewed: Yes Children Family History Reviewed: Yes Sibling(s) Family History Reviewed.: Yes Medication/Allergy Home Medications: Acetaminophen [Tylenol Extra Strength 500 mg Tablet] 1 tab PO QHS 08/28/18 Acetaminophen [Tylenol Extra Strength 500 mg Tablet] 2 tab PO NOON 08/28/18 Clobetasol Propionate [Temovate 0.05% Topical Soln 25 Ml Bottle] 1 applic TOP QHS 08/28/18 Cyanocobalamin (Vitamin B-12) [Vitamin B-12 1000 Mcg Tablet] 1 tab PO DAILY 08/28/18 Ferrous Sulfate [Feosol 325 mg Tablet] 325 mg PO BIDBS 08/28/18 Furosemide [Lasix 20 mg Tablet] 20 mg PO QAM 08/28/18 Hydrocodone/Acetaminophen [[place] 5-325 mg Tablet] 1 tab PO BIDBS 08/28/18 Multivitamin [Tab-A-Khushi (Multiple Vitamin) Tablet] 1 tab PO DAILY 08/28/18 Petrolatum,White [Aquaphor] 1 applic TP QHS 08/28/18 Prazosin HCl [Minipress] 2 mg PO Q8 08/28/18 Silver Sulfadiazine [Silvadene 1% Cream 50 gm Tube] 1 applic TP DAILY 08/28/18 Simvastatin [Zocor 20 mg Tablet] 20 mg PO QHS 08/28/18 Allergies/Adverse Reactions: No Known Allergies Allergy (Unverified 04/12/18 10:35) Review of Systems All systems: reviewed and no additional remarkable complaints except as stated Review of Systems: Constitutional: ABSENT: chills, fever(s), headache(s), weight gain, weight loss; admits to feeling tired and fatigued Eyes: ABSENT: visual disturbances Ears: ABSENT: hearing changes Cardiovascular: ABSENT: chest pain, dyspnea on exertion, orthropnea, palpitations; he has chronic edema Respiratory: ABSENT: cough, hemoptysis; chronic dyspnea on home oxygen Gastrointestinal: ABSENT: abdominal pain, constipation, diarrhea, hematemesis, hematochezia, nausea, vomiting Genitourinary: ABSENT: dysuria, hematuria Musculoskeletal: ABSENT: joint swelling Integumentary: ABSENT: rash, wounds Neurological: ABSENT: abnormal gait, abnormal speech, confusion, focal weakness, numbness, syncope; admits dizziness Psychiatric: ABSENT: anxiety, depression Endocrine: ABSENT: cold intolerance, heat intolerance, polydipsia, polyuria Hematologic/Lymphatic: ABSENT: Easy bruising, lymphadenopathy; admits cutaneous skin lesions due to her lymphoma which intermittently bleeds Physical Exam Vital Signs: Temp Pulse Resp BP Pulse Ox 98.1 F 101 H 24 H 132/48 H 98 08/29/18 07:21 08/29/18 07:21 08/29/18 07:21 08/29/18 07:21 08/29/18 08:00 Intake & Output 08/28/18 08/29/18 08/30/18 06:59 06:59 06:59 Intake Total 949 Output Total 0 Balance 949 Weight 67.6 kg Exam: General appearance: No acute distress, cooperative, well-developed, well- nourished Head exam: PRESENT: atraumatic, normocephalic Eye exam: PRESENT: Conjunctiva pale, EOMI, PERRLA. ABSENT: conjunctival injection, scleral icterus Mouth exam: PRESENT: moist, neck supple, tongue midline Neck exam: PRESENT: full ROM. ABSENT: carotid bruit, JVD, lymphadenopathy, thyromegaly Respiratory exam: PRESENT: Diminished to auscultation bilaterally. ABSENT: rales, rhonchi, stridor, wheezes Cardiovascular exam: PRESENT: Irregularly irregular, +S1, +S2. Grade 3/6 systolic murmur Pulses: PRESENT: normal radial pulses, normal dorsalis pedis pulses GI/Abdominal exam: PRESENT: normal bowel sounds, soft. ABSENT: guarding, mass, tenderness Rectal exam: Deferred Extremities exam: PRESENT: full ROM. Grade 1 bilateral lower extremity edema wrapped in Marcelino wrap, also with right arm swelling ABSENT: calf tenderness Musculoskeletal: PRESENT: full ROM. ABSENT: deformity Neurological exam: PRESENT: alert, Awake, Oriented to person, Oriented to place, Oriented to time, reflexes normal, CN II-XII grossly intact. ABSENT: motor sensory deficit Psychiatric exam: PRESENT: appropriate affect, normal mood. ABSENT: homicidal ideation, suicidal ideation Skin exam: PRESENT: intact, dry, warm. Positive pallor. Cutaneous lesions on her buttocks and her legs ABSENT: rash Results Laboratory Results: 08/29/18 06:50 08/29/18 06:50 08/28/18 08/28/18 08/29/18 11:35 11:35 06:50 WBC 10.1 RBC 2.82 L Hgb 8.5 L D Hct 24.8 L MCV 88 MCH 30.2 MCHC 34.2 RDW 16.9 H Plt Count 372 Seg Neutrophils % Not Reportable Lymphocytes % Not Reportable Monocytes % Not Reportable Eosinophils % Not Reportable Basophils % Not Reportable Absolute Neutrophils Not Reportable Absolute Lymphocytes Not Reportable Absolute Monocytes Not Reportable Absolute Eosinophils Not Reportable Absolute Basophils Not Reportable Sodium Potassium Chloride Carbon Dioxide Anion Gap BUN Creatinine Est GFR ( Amer) Est GFR (Non-Af Amer) Glucose Calcium Magnesium TSH 0.51 Blood Type B POSITIVE Antibody Screen NEGATIVE 08/29/18 06:50 WBC RBC Hgb Hct MCV MCH MCHC RDW Plt Count Seg Neutrophils % Lymphocytes % Monocytes % Eosinophils % Basophils % Absolute Neutrophils Absolute Lymphocytes Absolute Monocytes Absolute Eosinophils Absolute Basophils Sodium 138.5 Potassium 4.1 Chloride 109 H Carbon Dioxide 25 Anion Gap 5 BUN 29 H Creatinine 1.08 Est GFR ( Amer) 58 L Est GFR (Non-Af Amer) 48 L Glucose 70 L Calcium 7.7 L Magnesium 1.9 TSH Blood Type Antibody Screen 04/08/28/18 08/28/18 08:45 08:45 11:35 Creatine Kinase 51 50 CK-MB (CK-2) 2.13 Troponin I 0.044 NT-Pro-B Natriuret Pep 6970 H 08/28/18 11:35 Creatine Kinase CK-MB (CK-2) 2.39 Troponin I 0.057 NT-Pro-B Natriuret Pep Impressions: Chest X-Ray 08/28/18 08:42 IMPRESSION: Possible small right pleural effusion and/or pleural thickening. No focal airspace opacity. Cardiomegaly unchanged from prior. Chest CT 08/28/18 08:45 IMPRESSION: MODERATE BILATERAL PLEURAL EFFUSIONS, RIGHT GREATER THAN LEFT, WITH BASILAR ATELECTASIS. NODULAR DENSITY IN THE LATERAL LEFT LUNG BASE MAY BE DUE TO ATELECTASIS OR INFILTRATE. CANNOT EXCLUDE MASS LESION. IF THIS FINDING IS PERSISTENT AND DOES NOT RESOLVE WITH TREATMENT, THEN MAY REQUIRE PET SCAN FOR FURTHER EVALUATION. Assessment & Plan - Diagnosis (1) Anemia Qualifiers: Chronic kidney disease stage: stage 3 (moderate) Is this a current diagnosis for this admission?: Yes Plan: Multifactorial due to a combination of intermittent bleeding from cutaneous T- cell lymphoma, iron deficiency and chronic kidney disease. Status post 2 units blood transfusion. I called and spoke to Dr. Rios, oncologist regarding the case. She is taking the patient may need bone marrow biopsy at one point but at this point to be both agreed that patient would need IV iron, Procrit and she recommended that if the patient is actively bleeding a focus radiation on that side can help. Since the patient is not currently actively continuously bleeding and just having intermittent bleeds from cutaneous lesions as before confirmed by the daughter who probably can need radiation yet during this hospitalization. I was told that Dr. Smith is also than not going to be available until next week anyways. So at this point I am going to give her IV Injectafer and Procrit 40,000 units subcutaneously today. Continue to monitor her blood count. I asked Dr. Rios if she can see the patient sooner than September 19 after she is discharged and she is agreeable to that. (2) Atrial fibrillation Is this a current diagnosis for this admission?: Yes Plan: Currently with controlled ventricular response on Cardizem drip. (3) Chronic kidney disease, stage 3 Is this a current diagnosis for this admission?: Yes Plan: Secondary to hypertensive nephrosclerosis ,currently at baseline kidney function. (4) Hypertension Is this a current diagnosis for this admission?: Yes (5) Swelling of right upper extremity Is this a current diagnosis for this admission?: Yes Plan: Check for right arm DVT by Doppler ultrasound. (6) Bilateral lower extremity edema Is this a current diagnosis for this admission?: Yes Plan: This is chronic and actually currently improved from previous. Continue Marcelino wraps. (7) Diabetes Qualifiers: Diabetes mellitus type: type 2 Is this a current diagnosis for this admission?: Yes (8) T-cell lymphoma Is this a current diagnosis for this admission?: Yes - Notes Notes: Thank you very much for this consultation. Case discussed with Dr. Rios and Oliva Smith NP. Assessment and plan also discussed with the patient's daughter and granddaughter at bedside. - Time Time Spent: Greater than 70 Minutes
[2018-08-29] MEDS ORDERED: EPOETIN ALFA INJ 40000 UNIT/1 ML (RENAL) SUBCUT ONE (12:00)
[2018-08-29] MEDS ORDERED: FERRIC CARBOXYMALTOSE 750 MG in NORMAL SALINE 250 ML IV ONE (13:00)
[2018-08-29] MEDS: FAMOTIDINE 20 MG TABLET PO SCH ×2 (13:25→21:08)
[2018-08-29] MEDS: DILTIAZEM HCL/D5W 125 MG/125 ML RTUINJ IV PRN (15:05)
[2018-08-29 15:35] LABS: ABSOLUTE RETICS # 0.038 10^6/uL (0.028-0.122); RETICULOCYTE COUNT (AUTO) 1.36 % (0.66-2.85)
[2018-08-29 15:54] LABS: IRON(TIBC) 83.3 ug/dL (37-170)
[2018-08-29] MEDS: HYDROMORPHONE HCL INJ/PF 2 MG/ML AMPULE IV PRN (18:03)
[2018-08-29 18:41] LABS: APPEARANCE,URINE CLEAR; BILIRUBIN,URINE NEGATIVE (NEGATIVE); COLOR,URINE YELLOW; GLUCOSE, URINE NEGATIVE (NEGATIVE); KETONES,URINE NEGATIVE (NEGATIVE); LEUKOCYTE ESTERASE,URINE TRACE (NEGATIVE); NITRITE,URINE POSITIVE (NEGATIVE); PROTEIN,URINE NEGATIVE (NEGATIVE); UROBILINOGEN,URINE NEGATIVE mg/dL (<2.0)
--- NOTE | 2018-08-29 20:55 | PDOC PROGRESS REPORT ---
Subjective Progress Note for:: 08/29/18 Subjective:: HUSSAIN MORRISSEY is a 87 year old female past medical history of diabetes diet controlled, T-cell lymphoma diagnosed in [address] Jaimee Rios, has refused chemotherapy, received XRT 3 times, left breast and back lymph nodes removed in 2017. Patient was brought to the hospital for weakness and pre- syncope. The patient was seen this morning on rounds, daughters are at the bedside. 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 She is oriented x 2 and is not able to tell me why she is in the hospital. The patient is pale, appears weak. RUE is very edematous compared to LUE. Family reports this is the site of an IV infiltration. Erythema and edema noted from mid- forearm extending medially all the way to the shoulder. Dr. Castelan is at the bedside. She was able to consult with Dr. Rios today via telephone. Discussed plan with family to consult Dr. Smith, Radiology Oncology, on Monday regarding focused radiation to the mycosis fungoides lesions. It is possible that these are the source of her bleeding resulting in anemia. Patient's Hgb today is 8.4, does not require PRBC transfusion. Per Dr. Castelan recommendations, will plan for Iron infusion and Procrit. Reason For Visit: RAPID ATRIAL FIBRILLATION Physical Exam Vital Signs: Temp Pulse Resp BP Pulse Ox 98.1 F 83 24 H 119/46 L 98 08/29/18 07:21 08/29/18 14:00 08/29/18 07:21 08/29/18 13:00 08/29/18 08:00 Intake & Output 08/28/18 08/29/18 08/30/18 06:59 06:59 06:59 Intake Total 949 Output Total 0 Balance 949 Weight 67.6 kg General appearance: PRESENT: thin Eye exam: PRESENT: PERRLA Mouth exam: PRESENT: moist Teeth exam: PRESENT: poor dentation Respiratory exam: PRESENT: clear to auscultation edinson, symmetrical, unlabored Cardiovascular exam: PRESENT: irregular rhythm - AFIB Pulses: PRESENT: normal radial pulses, +1 pedal pulses bilateral Vascular exam: PRESENT: pallor GI/Abdominal exam: PRESENT: soft. ABSENT: distended, tenderness Rectal exam: PRESENT: deferred Musculoskeletal exam: PRESENT: ambulatory - ACCORDING TO FAMILY SHE IS AMBULATORY AT HOME Neurological exam: PRESENT: alert, awake, oriented to person, oriented to place. ABSENT: oriented to time, oriented to situation Skin exam: PRESENT: dry, pallor, other - SKIN LESIONS TO LOWER BACK AND BUTTOCKS. WEEPING. CRUSTING. DO NOT APPEAR INFECTED. Results Laboratory Results: 08/29/18 06:50 08/29/18 06:50 08/28/18 08/28/18 08/29/18 11:35 11:35 06:50 WBC 10.1 RBC 2.82 L Hgb 8.5 L D Hct 24.8 L MCV 88 MCH 30.2 MCHC 34.2 RDW 16.9 H Plt Count 372 Seg Neutrophils % Not Reportable Lymphocytes % Not Reportable Monocytes % Not Reportable Eosinophils % Not Reportable Basophils % Not Reportable Absolute Neutrophils Not Reportable Absolute Lymphocytes Not Reportable Absolute Monocytes Not Reportable Absolute Eosinophils Not Reportable Absolute Basophils Not Reportable Sodium Potassium Chloride Carbon Dioxide Anion Gap BUN Creatinine Est GFR ( Amer) Est GFR (Non-Af Amer) Glucose Calcium Magnesium TSH 0.51 Blood Type B POSITIVE Antibody Screen NEGATIVE 08/29/18 06:50 WBC RBC Hgb Hct MCV MCH MCHC RDW Plt Count Seg Neutrophils % Lymphocytes % Monocytes % Eosinophils % Basophils % Absolute Neutrophils Absolute Lymphocytes Absolute Monocytes Absolute Eosinophils Absolute Basophils Sodium 138.5 Potassium 4.1 Chloride 109 H Carbon Dioxide 25 Anion Gap 5 BUN 29 H Creatinine 1.08 Est GFR ( Amer) 58 L Est GFR (Non-Af Amer) 48 L Glucose 70 L Calcium 7.7 L Magnesium 1.9 TSH Blood Type Antibody Screen 08/28/18 08/28/18 08/28/18 08:45 08:45 11:35 Creatine Kinase 51 50 CK-MB (CK-2) 2.13 Troponin I 0.044 NT-Pro-B Natriuret Pep 6970 H 08/28/18 11:35 Creatine Kinase CK-MB (CK-2) 2.39 Troponin I 0.057 NT-Pro-B Natriuret Pep Impressions: Chest X-Ray 08/28/18 08:42 IMPRESSION: Possible small right pleural effusion and/or pleural thickening. No focal airspace opacity. Cardiomegaly unchanged from prior. Chest CT 08/28/18 08:45 IMPRESSION: MODERATE BILATERAL PLEURAL EFFUSIONS, RIGHT GREATER THAN LEFT, WITH BASILAR ATELECTASIS. NODULAR DENSITY IN THE LATERAL LEFT LUNG BASE MAY BE DUE TO ATELECTASIS OR INFILTRATE. CANNOT EXCLUDE MASS LESION. IF THIS FINDING IS PERSISTENT AND DOES NOT RESOLVE WITH TREATMENT, THEN MAY REQUIRE PET SCAN FOR FURTHER EVALUATION. Status: Imported from PACS Assessment and Plan - Diagnosis (1) Atrial fibrillation Qualifiers: Atrial fibrillation type: unspecified Qualified Code(s): I48.91 - Unspecified atrial fibrillation Is this a current diagnosis for this admission?: Yes Plan: New onset. No cardiac history. Rate controlled today CHADsVASC2 3. Not a candidate for anticoagulation due to recurrent falls, bleeding tendency, underlying T-cell lymphoma. Per family patient cannot tolerate aspirin as she has had epistaxis due to aspirin. Continue Cardizem drip, digitalis as needed. Will switch to p.o. Cardizem/beta-blockers tomorrow (2) Pre-syncope Is this a current diagnosis for this admission?: Yes Plan: Due to #1. Monitor vitals. Monitor hemodynamics. (3) Anemia Qualifiers: Chronic kidney disease stage: stage 3 (moderate) Is this a current diagnosis for this admission?: Yes Plan: Stemming from CKD and underlying T-cell lymphoma. Hgb increased from 6.2-->8.4 Transfuse if Hgb<8.0 No obvious source of blood loss, possibly slow leak from myocytis lesions Followed by Dr. Castelan nephrology as outpatient. Received iron transfusion and PRBC transfusion in the past. Has not received Procrit because statistical technician was waiting to discuss Procrit safety setting of T-cell lymphoma with her oncologist. Plan for iron infusion and procrit today (4) CHF (congestive heart failure) Qualifiers: Heart failure type: unspecified Heart failure chronicity: unspecified Qualified Code(s): I50.9 - Heart failure, unspecified Is this a current diagnosis for this admission?: Yes Plan: Based on physical examination and laboratory finding. BNP more than 6000. Discussed with Dr. Thomas, he states the patient does not need an ECHO Monitor volume status Low-dose diuretics guided by her vitals. Cardiac diet. (5) CKD (chronic kidney disease) Is this a current diagnosis for this admission?: Yes Plan: Followed by Dr. Castelan as an outpatient (6) Diabetes Qualifiers: Diabetes mellitus type: type 2 Is this a current diagnosis for this admission?: Yes Plan: Controlled Continue diabetic diet, sliding scale insulin and accuchels ACHS. 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 Follwed by Dr. Rios, oncologist, as outpatient. Patient refused chemotherapy but has received radiation 3 times. Continue wound care per nursing and cover wounds with soft silicone dressing (8) T-cell lymphoma Is this a current diagnosis for this admission?: Yes Plan: History of mycosis fungoides. Followed by Dr. Rios, oncologist, as outpatient. Per family she has refused chemotherapy but has received radiation [address] Rios - Time Time Spent with patient: 25-34 minutes Medications reviewed and adjusted accordingly: Yes Anticipated discharge: SNF Within: Other - WHEN MEDICALLY STABLE - Inpatient Certification Based on my medical assessment, after consideration of the patient's comorbidities, presenting symptoms, or acuity I expect that the services needed warrant INPATIENT care.: Yes I certify that my determination is in accordance with my understanding of Medicare's requirements for reasonable and necessary INPATIENT services [42 CFR 412.3e].: Yes Medical Necessity: Risk of Complication if Not Cared For in Hospital
[2018-08-29] MEDS: DILTIAZEM HCL 120 MG CAP.SR.24H PO SCH (21:08)
[2018-08-30 04:33] LABS: HEMATOCRIT 25.1 % (36.0-47.0); HEMOGLOBIN 8.3 g/dL (12.0-15.5); MEAN CORPUSCULAR HEMOGLOBIN 29.2 pg (27.0-33.4); MEAN CORPUSCULAR HGB CONC 33.3 g/dL (32.0-36.0); MEAN CORPUSCULAR VOLUME 88 fl (80-97); PLATELET COUNT 361 10^3/uL (150-450); RED BLOOD COUNT 2.86 10^6/uL (3.72-5.28); RED CELL DISTRIBUTION WIDTH 17.1 % (11.5-14.0); WHITE BLOOD COUNT 13.9 10^3/uL (4.0-10.5)
[2018-08-30 04:34] LABS: BLOOD UREA NITROGEN 26 mg/dL (7-20); CALCIUM 8.1 mg/dL (8.4-10.2); GLUCOSE 96 mg/dL (75-110); POTASSIUM 3.8 mmol/L (3.6-5.0)
[2018-08-30 04:36] LABS: ABSOLUTE LYMPHOCYTES# (MANUAL) 0.4 10^3/uL (0.5-4.7); ABSOLUTE MONOCYTES # (MANUAL) 0.7 10^3/uL (0.1-1.4); ABSOLUTE NEUTROPHILS# (MANUAL) 12.8 10^3/uL (1.7-8.2); BASOPHILS % (MANUAL) 0 % (0-2); EOSINOPHILS % (MANUAL) 0 % (0-6); LYMPHOCYTES % (MANUAL) 3 % (13-45); MONOCYTES % (MANUAL) 5 % (3-13); SEGMENTED NEUTROPHILS % (MAN) 92 % (42-78); TOTAL CELLS COUNTED 100
[2018-08-30 04:37] LABS: ANISOCYTOSIS 1+; OVALOCYTES SLIGHT; PLATELET CLUMPS PRESENT; PLATELET COMMENT ADEQUATE; POIKILOCYTOSIS SLIGHT; TEAR DROP CELLS SLIGHT
[2018-08-30 04:39] LABS: CARBON DIOXIDE 26 mmol/L (22-30); CHLORIDE 109 mmol/L (98-107); SODIUM 137.2 mmol/L (137-145)
[2018-08-30 04:46] LABS: ANION GAP 2 (5-19)
--- NOTE | 2018-08-30 08:28 | RADIOLOGY REPORT (SQ) ---
EXAM DESCRIPTION: VENOUS UNILATERAL UPPER COMPLETED DATE/TIME: 08/29/2018 8:46 pm REASON FOR STUDY: RUE edema COMPARISON: None. TECHNIQUE: Dynamic and static galicia scale and color images acquired of the right arm venous system. S elected spectral images acquired with additional compression and augmentation maneuvers. The contrala teral subclavian vein and internal jugular vein were also imaged. Images stored on PACS. LIMITATIONS: None. FINDINGS: RIGHT INTERNAL JUGULAR VEIN: Normal phasicity, compression, augmentation. No visualized echogenic material on galicia scale. No defects on color images. Comparison opposite side normal. SUBCLAVIAN VEIN: Normal compression, augmentation. No visualized echogenic material on galicia scale. No defects on color images. AXILLARY VEIN: Normal compression, augmentation. No visualized echogenic material on galicia scale. No d efects on color images. BRACHIAL VEIN: There are bandages limiting visualization of the distal brachium vein. Normal piedad ellen, augmentation. No visualized echogenic material on galicia scale. No defects on color images. BASILIC VEIN: Normal compression, augmentation. No visualized echogenic material on galicia scale. No de fects on color images. CEPHALIC VEIN: Normal compression, augmentation. No visualized echogenic material on galicia scale. No d efects on color images. OTHER: No other significant finding. LEFT SUBCLAVIAN VEIN AND INTERNAL JUGULAR VEIN: Normal phasicity, compression and augmentation. No visualized echogenic material on galicia scale. No de fects on color images. IMPRESSION: NO EVIDENCE DVT OR SVT RIGHT ARM. TECHNICAL DOCUMENTATION: JOB ID: [id number] [employer]- All Rights Reserved Reading location - IP/workstation name: [email or web address]
--- NOTE | 2018-08-30 09:09 | PDOC PROGRESS REPORT ---
Subjective Progress Note for:: 08/30/18 Subjective:: Patient states she is feeling fine today. She still bleeds intermittently for her back skin lesion. Her heart rate is controlled. She is making urine. Otherwise she does not have any other complaints. Reason For Visit: RAPID ATRIAL FIBRILLATION Physical Exam Vital Signs: Temp Pulse Resp BP Pulse Ox 98.4 F 71 20 123/38 L 94 08/30/18 03:36 08/30/18 08:21 08/30/18 03:36 08/30/18 08:21 08/30/18 08:21 Intake & Output 08/29/18 08/30/18 08/31/18 06:59 06:59 06:59 Intake Total 949 1279 Output Total 0 240 Balance 949 1039 Weight 67.6 kg 72 kg Exam: General appearance: PRESENT: no acute distress, cooperative, well-developed, well-nourished Head exam: PRESENT: atraumatic, normocephalic Eye exam: PRESENT: conjunctiva pale but a little bit better today, PERRLA. ABSENT: scleral icterus Neck exam: ABSENT: JVD Respiratory exam: PRESENT: Diminished breath sounds. ABSENT: crackles, rales, rhonchi, unlabored, wheezes Cardiovascular exam: PRESENT: Irregularly irregular rate rhythm -+S1, +S2. Grade 2/6 systolic murmur GI/Abdominal exam: PRESENT: normal bowel sounds, soft. ABSENT: guarding, mass, tenderness Extremities exam: Grade 1 bilateral lower extremity pitting edema; right arm swelling actually improved today. Neurological exam: PRESENT: alert, awake, oriented to person, place and time. Skin exam: PRESENT: dry, warm, unchanged skin lesions on her back and her extremities. Results Laboratory Results: 08/30/18 04:00 08/30/18 04:00 08/29/18 08/29/18 08/29/18 06:50 06:50 18:18 WBC RBC Hgb Hct MCV MCH MCHC RDW Plt Count Seg Neutrophils % Lymphocytes % Monocytes % Eosinophils % Basophils % Absolute Neutrophils Absolute Lymphocytes Absolute Monocytes Absolute Eosinophils Absolute Basophils Retic Count (auto) 1.36 Absolute Retic 0.038 Sodium Potassium Chloride Carbon Dioxide Anion Gap BUN Creatinine Est GFR ( Amer) Est GFR (Non-Af Amer) Glucose Calcium Magnesium Iron 83.3 TIBC 126 L % Saturation 66 Ferritin 113.00 Vitamin B12 937.0 H Folate 10.70 Urine Color YELLOW Urine Appearance CLEAR Urine pH 5.0 Ur Specific [place] 1.030 Urine Protein NEGATIVE Urine Glucose (UA) NEGATIVE Urine Ketones NEGATIVE Urine Blood NEGATIVE Urine Nitrite POSITIVE H Ur Leukocyte Esterase TRACE H Urine WBC (Auto) 4 Urine RBC (Auto) 1 08/30/18 08/30/18 04:00 04:00 WBC 13.9 H RBC 2.86 L Hgb 8.3 L Hct 25.1 L MCV 88 MCH 29.2 MCHC 33.3 RDW 17.1 H Plt Count 361 Seg Neutrophils % Not Reportable Lymphocytes % Not Reportable Monocytes % Not Reportable Eosinophils % Not Reportable Basophils % Not Reportable Absolute Neutrophils Not Reportable Absolute Lymphocytes Not Reportable Absolute Monocytes Not Reportable Absolute Eosinophils Not Reportable Absolute Basophils Not Reportable Retic Count (auto) Absolute Retic Sodium 137.2 Potassium 3.8 Chloride 109 H Carbon Dioxide 26 Anion Gap 2 L BUN 26 H Creatinine 1.04 Est GFR ( Amer) > 60 Est GFR (Non-Af Amer) 50 L Glucose 96 Calcium 8.1 L Magnesium 1.9 Iron TIBC % Saturation Ferritin Vitamin B12 Folate Urine Color Urine Appearance Urine pH Ur Specific [place] Urine Protein Urine Glucose (UA) Urine Ketones Urine Blood Urine Nitrite Ur Leukocyte Esterase Urine WBC (Auto) Urine RBC (Auto) 08/28/18 09:48 Catheterized Urine Urine Culture - Final Escherichia Coli 08/28/18 08/28/18 08/28/18 08:45 08:45 11:35 Creatine Kinase 51 50 CK-MB (CK-2) 2.13 Troponin I 0.044 NT-Pro-B Natriuret Pep 6970 H 08/28/18 11:35 Creatine Kinase CK-MB (CK-2) 2.39 Troponin I 0.057 NT-Pro-B Natriuret Pep Impressions: Chest X-Ray 08/28/18 08:42 IMPRESSION: Possible small right pleural effusion and/or pleural thickening. No focal airspace opacity. Cardiomegaly unchanged from prior. Chest CT 08/28/18 08:45 IMPRESSION: MODERATE BILATERAL PLEURAL EFFUSIONS, RIGHT GREATER THAN LEFT, WITH BASILAR ATELECTASIS. NODULAR DENSITY IN THE LATERAL LEFT LUNG BASE MAY BE DUE TO ATELECTASIS OR INFILTRATE. CANNOT EXCLUDE MASS LESION. IF THIS FINDING IS PERSISTENT AND DOES NOT RESOLVE WITH TREATMENT, THEN MAY REQUIRE PET SCAN FOR FURTHER EVALUATION. Venous Doppler Study 08/29/18 00:00 IMPRESSION: NO EVIDENCE DVT OR SVT RIGHT ARM. Assessment & Plan - Diagnosis (1) Anemia Qualifiers: Chronic kidney disease stage: stage 3 (moderate) Is this a current diagnosis for this admission?: Yes Plan: Multifactorial causes secondary to bleeding skin lesions, chronic kidney disease, and relative iron deficiency which is currently within acceptable limits after blood transfusion. Patient received 2 units of packed RBC, a dose of IV Injectafer and a dose of Procrit. If her skin lesions continues to bleed lateral wall most recommendation is to have a focus radiation on those areas. Patient will need to follow-up with Dr. Rios and Dr. Smith. (2) Atrial fibrillation Qualifiers: Atrial fibrillation type: unspecified Qualified Code(s): I48.91 - Unspecified atrial fibrillation Is this a current diagnosis for this admission?: Yes Plan: Currently with controlled ventricular response. Defer management to hospitalist service. (3) Chronic kidney disease, stage 3 Is this a current diagnosis for this admission?: Yes Plan: Kidney function stable. No further intervention from nephrology standpoint at this point. (4) UTI (urinary tract infection), bacterial Is this a current diagnosis for this admission?: Yes Plan: Start cefepime IV while here in the hospital and then she can be changed to cefuroxime oral if she gets discharged. (5) Hypertension Is this a current diagnosis for this admission?: Yes Plan: Well controlled. (6) Swelling of right upper extremity Is this a current diagnosis for this admission?: Yes Plan: Currently improved. No evidence of DVT or SVT from Doppler ultrasound. (7) Bilateral lower extremity edema Is this a current diagnosis for this admission?: Yes (8) Diabetes Qualifiers: Diabetes mellitus type: type 2 Is this a current diagnosis for this admission?: Yes (9) T-cell lymphoma Is this a current diagnosis for this admission?: Yes - Notes Notes: Continue current management. At this point we do not have any further recommendation from nephrology standpoint. We will sign off. Please call us back if we can be of further help. - Time Time with patient: 15-25 minutes
[2018-08-30] MEDS ORDERED: CEFEPIME 2 GM/D5W RTU 2 GM/50 ML RTUPB IV SCH (10:00)
[2018-08-30] MEDS: DILTIAZEM HCL 120 MG CAP.SR.24H PO SCH ×2 (10:44→21:42)
[2018-08-30] MEDS: CEFEPIME HCL 2 GM in DEXTROSE 5%-WATER 50 ML IV SCH (10:44)
[2018-08-30] MEDS: FAMOTIDINE 20 MG TABLET PO SCH ×2 (10:44→21:42)
[2018-08-30] MEDS: TRAMADOL HCL 50 MG TABLET PO PRN ×2 (11:07→21:41)
--- NOTE | 2018-08-30 19:56 | PDOC PROGRESS REPORT ---
Subjective Progress Note for:: 08/30/18 Subjective:: HUSSAIN MORRISSEY is a 87 year old female past medical history of diabetes diet controlled, T-cell lymphoma diagnosed in [address] Jaimee Rios, has refused chemotherapy, received XRT 3 times, left breast and back lymph nodes removed in 2017. Patient was brought to the hospital for weakness and pre- syncope. The patient was seen this morning on rounds, daughters are at the bedside. 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 I reiterated to patient and family that she can have oral or IV pain medication. She is oriented x 2 and is not able to tell me why she is in the hospital. The patient is pale, appears weak. RUE is very edematous compared to LUE, US negative for DVT. Patient's HR remains controlled. She was transitioned from Cardizem GTT to p.o. Cardizem overnight. Urine culture positive today for MDR E. coli. Initiated IV cefepime, with plans to transition to cefuroxime once patient is discharged. FRANCA Cao from [facility] met with family yesterday to discuss palliative care. PT met with patient today, recommend inpatient rehab. Patient requires 2 person max assist to get OOB. Family is in agreement that patient requires placement in facility. Discharge planning notified, appreciate their assistance in finding placement. Reason For Visit: RAPID ATRIAL FIBRILLATION Physical Exam Vital Signs: Temp Pulse Resp BP Pulse Ox 97.3 F 77 24 H 123/50 L 100 08/30/18 14:46 08/30/18 14:46 08/30/18 14:46 08/30/18 14:46 08/30/18 11:28 Intake & Output 08/29/18 08/30/18 08/31/18 06:59 06:59 06:59 Intake Total 949 1279 50 Output Total 0 240 Balance 949 1039 50 Weight 67.6 kg 72 kg General appearance: PRESENT: well-developed, well-nourished Head exam: PRESENT: atraumatic Eye exam: PRESENT: conjunctiva pale Mouth exam: PRESENT: moist, tongue midline Teeth exam: PRESENT: poor dentation Neck exam: PRESENT: full ROM Respiratory exam: PRESENT: clear to auscultation edinson, symmetrical, unlabored Cardiovascular exam: PRESENT: irregular rhythm - afib Pulses: PRESENT: normal radial pulses, +1 pedal pulses bilateral Vascular exam: PRESENT: normal capillary refill GI/Abdominal exam: PRESENT: soft. ABSENT: distended, tenderness Rectal exam: PRESENT: deferred Extremities exam: ABSENT: full ROM Musculoskeletal exam: ABSENT: ambulatory, full ROM Neurological exam: PRESENT: alert, awake, oriented to person, oriented to place. ABSENT: oriented to time, oriented to situation Psychiatric exam: PRESENT: appropriate affect Skin exam: PRESENT: dry, intact, normal color Results Laboratory Results: 08/30/18 04:00 08/30/18 04:00 08/29/18 08/30/18 08/30/18 18:18 04:00 04:00 WBC 13.9 H RBC 2.86 L Hgb 8.3 L Hct 25.1 L MCV 88 MCH 29.2 MCHC 33.3 RDW 17.1 H Plt Count 361 Seg Neutrophils % Not Reportable Lymphocytes % Not Reportable Monocytes % Not Reportable Eosinophils % Not Reportable Basophils % Not Reportable Absolute Neutrophils Not Reportable Absolute Lymphocytes Not Reportable Absolute Monocytes Not Reportable Absolute Eosinophils Not Reportable Absolute Basophils Not Reportable Sodium 137.2 Potassium 3.8 Chloride 109 H Carbon Dioxide 26 Anion Gap 2 L BUN 26 H Creatinine 1.04 Est GFR ( Amer) > 60 Est GFR (Non-Af Amer) 50 L Glucose 96 Calcium 8.1 L Magnesium 1.9 Urine Color YELLOW Urine Appearance CLEAR Urine pH 5.0 Ur Specific [place] 1.030 Urine Protein NEGATIVE Urine Glucose (UA) NEGATIVE Urine Ketones NEGATIVE Urine Blood NEGATIVE Urine Nitrite POSITIVE H Ur Leukocyte Esterase TRACE H Urine WBC (Auto) 4 Urine RBC (Auto) 1 08/28/18 09:48 Catheterized Urine Urine Culture - Final Escherichia Coli 08/28/18 08/28/18 08/28/18 08:45 08:45 11:35 Creatine Kinase 51 50 CK-MB (CK-2) 2.13 Troponin I 0.044 NT-Pro-B Natriuret Pep 6970 H 08/28/18 11:35 Creatine Kinase CK-MB (CK-2) 2.39 Troponin I 0.057 NT-Pro-B Natriuret Pep Impressions: Chest X-Ray 08/28/18 08:42 IMPRESSION: Possible small right pleural effusion and/or pleural thickening. No focal airspace opacity. Cardiomegaly unchanged from prior. Chest CT 08/28/18 08:45 IMPRESSION: MODERATE BILATERAL PLEURAL EFFUSIONS, RIGHT GREATER THAN LEFT, WITH BASILAR ATELECTASIS. NODULAR DENSITY IN THE LATERAL LEFT LUNG BASE MAY BE DUE TO ATELECTASIS OR INFILTRATE. CANNOT EXCLUDE MASS LESION. IF THIS FINDING IS PERSISTENT AND DOES NOT RESOLVE WITH TREATMENT, THEN MAY REQUIRE PET SCAN FOR FURTHER EVALUATION. Venous Doppler Study 08/29/18 00:00 IMPRESSION: NO EVIDENCE DVT OR SVT RIGHT ARM. Status: Imported from PACS Assessment and Plan - Diagnosis (1) Atrial fibrillation Qualifiers: Atrial fibrillation type: unspecified Qualified Code(s): I48.91 - Unspecified atrial fibrillation Is this a current diagnosis for this admission?: Yes Plan: New onset. No cardiac history. Rate controlled today on PO diltiazem CHADsVASC2 3. Not a candidate for anticoagulation due to recurrent falls, bleed ing tendency, underlying T-cell lymphoma. Per family patient cannot tolerate aspirin as she has had epistaxis due to aspirin. Initially on Cardizem drip with PRN digitalis Switched to p.o. Cardizem today (2) Pre-syncope Is this a current diagnosis for this admission?: Yes Plan: Due to #1. Monitor vitals. Monitor hemodynamics. (3) Anemia Qualifiers: Chronic kidney disease stage: stage 3 (moderate) Is this a current diagnosis for this admission?: Yes Plan: Stemming from CKD and underlying T-cell lymphoma. Hgb increased from 6.2-->8.3 Transfuse if Hgb<8.0 No obvious source of blood loss, possibly slow leak from myocytis lesions Followed by Dr. Castelan nephrology as outpatient. Required iron transfusion and PRBC transfusion in the past. Now s/p iron infusion and procrit yesterday. (4) CHF (congestive heart failure) Qualifiers: Heart failure type: unspecified Heart failure chronicity: unspecified Qualified Code(s): I50.9 - Heart failure, unspecified Is this a current diagnosis for this admission?: Yes Plan: Based on physical examination and laboratory finding. BNP more than 6000. Discussed with Dr. Thomas, he states the patient does not need an ECHO Monitor volume status Low-dose diuretics guided by her vitals/clinical presentation Cardiac diet. (5) CKD (chronic kidney disease) Is this a current diagnosis for this admission?: Yes Plan: Followed by Dr. Castelan as an outpatient (6) Diabetes Qualifiers: Diabetes mellitus type: type 2 Is this a current diagnosis for this admission?: Yes Plan: Controlled Continue diabetic diet, sliding scale insulin and accucheks ACHS. 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 Follwed by Dr. Rios, oncologist, as outpatient. Patient refused chemotherapy but has received radiation 3 times. Continue wound care per nursing and cover wounds with soft silicone dressing Patient will require follow up with [facility] care [facility] following discharge (8) T-cell lymphoma Is this a current diagnosis for this admission?: Yes Plan: History of mycosis fungoides Followed by Dr. Rios, oncologist, as outpatient. Per family she has refused chemotherapy but has received radiation [address] Rios - Time Time Spent with patient: 15-24 minutes Medications reviewed and adjusted accordingly: Yes Anticipated discharge: SNF Within: within 48 hours - Inpatient Certification Based on my medical assessment, after consideration of the patient's comorbidities, presenting symptoms, or acuity I expect that the services needed warrant INPATIENT care.: Yes I certify that my determination is in accordance with my understanding of Medicare's requirements for reasonable and necessary INPATIENT services [42 CFR 412.3e].: Yes Medical Necessity: Risk of Complication if Not Cared For in Hospital
[2018-08-31 04:20] LABS: APPEARANCE,URINE CLOUDY; BILIRUBIN,URINE NEGATIVE (NEGATIVE); COLOR,URINE YELLOW; GLUCOSE, URINE NEGATIVE (NEGATIVE); KETONES,URINE NEGATIVE (NEGATIVE); LEUKOCYTE ESTERASE,URINE LARGE (NEGATIVE); NITRITE,URINE NEGATIVE (NEGATIVE); PROTEIN,URINE NEGATIVE (NEGATIVE); UROBILINOGEN,URINE NEGATIVE mg/dL (<2.0)
[2018-08-31 04:22] LABS: HEMATOCRIT 25.5 % (36.0-47.0); HEMOGLOBIN 8.4 g/dL (12.0-15.5); MEAN CORPUSCULAR HEMOGLOBIN 29.1 pg (27.0-33.4); MEAN CORPUSCULAR VOLUME 88 fl (80-97); PLATELET COUNT 354 10^3/uL (150-450); RED BLOOD COUNT 2.89 10^6/uL (3.72-5.28); RED CELL DISTRIBUTION WIDTH 17.1 % (11.5-14.0); WHITE BLOOD COUNT 11.3 10^3/uL (4.0-10.5)
[2018-08-31 04:34] LABS: BLOOD UREA NITROGEN 26 mg/dL (7-20); CALCIUM 7.8 mg/dL (8.4-10.2); CHLORIDE 109 mmol/L (98-107); GLUCOSE 79 mg/dL (75-110); POTASSIUM 3.8 mmol/L (3.6-5.0)
[2018-08-31 04:39] LABS: CARBON DIOXIDE 28 mmol/L (22-30); SODIUM 139.6 mmol/L (137-145)
[2018-08-31 04:40] LABS: ANION GAP 3 (5-19)
[2018-08-31 04:52] LABS: ABSOLUTE LYMPHOCYTES# (MANUAL) 0.5 10^3/uL (0.5-4.7); ABSOLUTE MONOCYTES # (MANUAL) 0.8 10^3/uL (0.1-1.4); ABSOLUTE NEUTROPHILS# (MANUAL) 9.9 10^3/uL (1.7-8.2); BAND NEUTROPHILS % (MANUAL) 6 % (3-5); BASOPHILS % (MANUAL) 0 % (0-2); EOSINOPHILS % (MANUAL) 1 % (0-6); LYMPHOCYTES % (MANUAL) 4 % (13-45); MONOCYTES % (MANUAL) 7 % (3-13); SEGMENTED NEUTROPHILS % (MAN) 82 % (42-78); TOTAL CELLS COUNTED 100
[2018-08-31 04:53] LABS: HYPOCHROMASIA SLIGHT; PLATELET COMMENT ADEQUATE; POLYCHROMASIA SLIGHT
[2018-08-31] MEDS: FAMOTIDINE 20 MG TABLET PO SCH ×2 (10:22→22:16)
[2018-08-31] MEDS: DILTIAZEM HCL 120 MG CAP.SR.24H PO SCH ×2 (10:22→22:16)
[2018-08-31] MEDS: CEFEPIME HCL 2 GM in DEXTROSE 5%-WATER 50 ML IV SCH (10:22)
[2018-08-31] MEDS: TRAMADOL HCL 50 MG TABLET PO PRN ×2 (11:00→22:16)
[2018-08-31] MEDS ORDERED: LORAZEPAM INJ 2 MG/1 ML VIAL ONE (14:45)
--- NOTE | 2018-08-31 21:19 | PDOC PROGRESS REPORT ---
Subjective Progress Note for:: 08/31/18 Subjective:: HUSSAIN MORRISSEY is a 87 year old female past medical history of diabetes diet controlled, T-cell lymphoma diagnosed in [address] Jaimee Rios, has refused chemotherapy, received XRT 3 times, left breast and back lymph nodes removed in 2017. Patient was brought to the hospital for weakness and pre- syncope. The patient was seen this morning on rounds, daughters are at the bedside. The patient is very altered today. She is oriented to self only. Speaking phrases that are nonsensical or sometimes jibberish. The patient has no focal deficits. This is likely the patient's UTI presenting as acute delirium. Family expressed wishes to place patient in [facility] care facility with palliative care. Daughters say they would like to visit [place] prior to deciding where she should be placed. Patient is currently awaiting placement. Reason For Visit: RAPID ATRIAL FIBRILLATION Physical Exam Vital Signs: Temp Pulse Resp BP Pulse Ox 98.1 F 61 20 130/98 H 95 08/31/18 19:28 08/31/18 20:23 08/31/18 19:01 08/31/18 19:28 08/31/18 19:34 Intake & Output 08/30/18 08/31/18 09/01/18 06:59 06:59 06:59 Intake Total 1279 650 275 Output Total 240 825 250 Balance 1039 -175 25 Weight 72 kg 70.6 kg General appearance: PRESENT: well-developed, well-nourished Head exam: PRESENT: atraumatic Eye exam: PRESENT: conjunctiva pink, PERRLA Mouth exam: PRESENT: moist, tongue midline Teeth exam: PRESENT: poor dentation Neck exam: PRESENT: full ROM Respiratory exam: PRESENT: clear to auscultation edinson, decreased breath sounds - bilateral lower lobes, symmetrical, unlabored Cardiovascular exam: PRESENT: irregular rhythm - afib Pulses: PRESENT: normal radial pulses, normal dorsalis pedis pul Vascular exam: PRESENT: pallor GI/Abdominal exam: PRESENT: normal bowel sounds, soft, tenderness - generalized tenderness. ABSENT: distended Rectal exam: PRESENT: deferred Extremities exam: PRESENT: full ROM - upper extremities only, pedal edema Musculoskeletal exam: ABSENT: ambulatory, full ROM, normal inspection Neurological exam: PRESENT: alert, awake, oriented to person, oriented to place, oriented to time, oriented to situation Skin exam: PRESENT: dry, other - SKIN LESIONS TO LOWER BACK AND BUTTOCKS. WEEPING. CRUSTING. DO NOT APPEAR INFECTED.. ABSENT: intact Results Laboratory Results: 08/31/18 04:00 08/31/18 04:00 08/31/18 08/31/18 08/31/18 04:00 04:00 04:00 WBC 11.3 H RBC 2.89 L Hgb 8.4 L Hct 25.5 L MCV 88 MCH 29.1 MCHC 33.0 RDW 17.1 H Plt Count 354 Seg Neutrophils % Not Reportable Lymphocytes % Not Reportable Monocytes % Not Reportable Eosinophils % Not Reportable Basophils % Not Reportable Absolute Neutrophils Not Reportable Absolute Lymphocytes Not Reportable Absolute Monocytes Not Reportable Absolute Eosinophils Not Reportable Absolute Basophils Not Reportable Sodium 139.6 Potassium 3.8 Chloride 109 H Carbon Dioxide 28 Anion Gap 3 L BUN 26 H Creatinine 0.96 Est GFR ( Amer) > 60 Est GFR (Non-Af Amer) 55 L Glucose 79 Calcium 7.8 L Magnesium 2.0 Urine Color YELLOW Urine Appearance CLOUDY Urine pH 5.0 Ur Specific Hines 1.020 Urine Protein NEGATIVE Urine Glucose (UA) NEGATIVE Urine Ketones NEGATIVE Urine Blood LARGE H Urine Nitrite NEGATIVE Ur Leukocyte Esterase LARGE H Urine WBC (Auto) 98 Urine RBC (Auto) 97 08/28/18 08/28/18 08/28/18 08:45 08:45 11:35 Creatine Kinase 51 50 CK-MB (CK-2) 2.13 Troponin I 0.044 NT-Pro-B Natriuret Pep 6970 H 08/28/18 11:35 Creatine Kinase CK-MB (CK-2) 2.39 Troponin I 0.057 NT-Pro-B Natriuret Pep Impressions: Chest X-Ray 08/28/18 08:42 IMPRESSION: Possible small right pleural effusion and/or pleural thickening. No focal airspace opacity. Cardiomegaly unchanged from prior. Chest CT 08/28/18 08:45 IMPRESSION: MODERATE BILATERAL PLEURAL EFFUSIONS, RIGHT GREATER THAN LEFT, WITH BASILAR ATELECTASIS. NODULAR DENSITY IN THE LATERAL LEFT LUNG BASE MAY BE DUE TO ATELECTASIS OR INFILTRATE. CANNOT EXCLUDE MASS LESION. IF THIS FINDING IS PERSISTENT AND DOES NOT RESOLVE WITH TREATMENT, THEN MAY REQUIRE PET SCAN FOR FURTHER EVALUATION. Venous Doppler Study 08/29/18 00:00 IMPRESSION: NO EVIDENCE DVT OR SVT RIGHT ARM. Status: Imported from PACS Assessment and Plan - Diagnosis (1) Atrial fibrillation Qualifiers: Atrial fibrillation type: unspecified Qualified Code(s): I48.91 - Unspecified atrial fibrillation Is this a current diagnosis for this admission?: Yes Plan: New onset. No cardiac history. Rate controlled today on PO diltiazem CHADsVASC2 3. Not a candidate for anticoagulation due to recurrent falls, bleeding tendency, underlying T-cell lymphoma. Per family patient cannot tolerate aspirin as she has had epistaxis due to aspirin. Initially on Cardizem drip, switched to p.o. Cardizem (2) Pre-syncope Is this a current diagnosis for this admission?: Yes Plan: Due to #1. Monitor vitals. Monitor hemodynamics. (3) Anemia Qualifiers: Chronic kidney disease stage: stage 3 (moderate) Is this a current diagnosis for this admission?: Yes Plan: Stemming from CKD and underlying T-cell lymphoma. Hgb increased from 6.2-->8.4 Transfuse if Hgb<8.0 No obvious source of blood loss, possibly slow leak from myocytis lesions Followed by Dr. Castelan nephrology as outpatient. Required iron transfusion and PRBC transfusion in the past. Now s/p iron infusion and procrit 48hrs ago (4) CHF (congestive heart failure) Qualifiers: Heart failure type: unspecified Heart failure chronicity: unspecified Qualified Code(s): I50.9 - Heart failure, unspecified Is this a current diagnosis for this admission?: Yes Plan: Based on physical examination and laboratory finding. BNP more than 6000. Discussed with Dr. Thomas, he states the patient does not need an ECHO Monitor volume status Low-dose diuretics guided by her vitals/clinical presentation Cardiac diet. (5) CKD (chronic kidney disease) Is this a current diagnosis for this admission?: Yes Plan: Followed by Dr. aCstelan as an outpatient (6) Diabetes Qualifiers: Diabetes mellitus type: type 2 Is this a current diagnosis for this admission?: Yes Plan: Controlled Continue diabetic diet, sliding scale insulin and accucheks ACHS. 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 Follwed by Dr. Rios, oncologist, as outpatient. Patient refused chemotherapy but has received radiation 3 times. Continue wound care per nursing and cover wounds with soft silicone dressing Patient will require follow up with [facility] wound care clinic following discharge (8) T-cell lymphoma Is this a current diagnosis for this admission?: Yes Plan: History of mycosis fungoides Followed by Dr. Rios, oncologist, as outpatient. Per family she has refused chemotherapy but has received radiation [address] Rios - Time Time Spent with patient: 15-24 minutes Smoking Cessation Education: 3 to 10 minutes Medications reviewed and adjusted accordingly: Yes Anticipated discharge: Home Within: within 24 hours - Inpatient Certification Based on my medical assessment, after consideration of the patient's comorbidities, presenting symptoms, or acuity I expect that the services needed warrant INPATIENT care.: Yes I certify that my determination is in accordance with my understanding of Medic are's requirements for reasonable and necessary INPATIENT services [42 CFR 412.3e].: Yes Medical Necessity: Need for IV Antibiotics
[2018-09-01] MEDS: CEFEPIME HCL 2 GM in DEXTROSE 5%-WATER 50 ML IV SCH (11:31)
[2018-09-01] MEDS: FAMOTIDINE 20 MG TABLET PO SCH ×2 (11:32→21:50)
[2018-09-01] MEDS: DILTIAZEM HCL 120 MG CAP.SR.24H PO SCH ×2 (11:32→21:50)
[2018-09-01] MEDS: LEVALBUTEROL HCL NEB 0.63 MG/3 ML AMPUL NEB PRN (14:24)
[2018-09-01] MEDS: TRAMADOL HCL 50 MG TABLET PO PRN (15:46)
[2018-09-01] MEDS: GENTAMICIN SULFATE 0.3% OPH SOLN 5 ML OU SCH ×2 (16:37→20:43)
[2018-09-01] MEDS ORDERED: GENTAMICIN SULFATE 0.3% OPH OINT 3.5 GM OU SCH (18:00)
[2018-09-01] MEDS: HYDROMORPHONE HCL INJ/PF 2 MG/ML AMPULE IV PRN (21:50)
[2018-09-02] MEDS: GENTAMICIN SULFATE 0.3% OPH SOLN 5 ML OU SCH ×6 (00:59→20:23)
[2018-09-02] MEDS: HYDROMORPHONE HCL INJ/PF 2 MG/ML AMPULE IV PRN ×5 (02:38→23:07)
[2018-09-02] MEDS ORDERED: RINGERS SOLUTION,LACTATED 1,000 ML IV ONE (03:30)
--- NOTE | 2018-09-02 05:27 | PDOC PROGRESS REPORT ---
Subjective Progress Note for:: 09/01/18 Subjective:: HUSSAIN MORRISSEY is a 87 year old female past medical history of diabetes diet controlled, T-cell lymphoma diagnosed in [address] Jaimee Rios, has refused chemotherapy, received XRT 3 times, left breast and back lymph nodes removed in 2017. Patient was brought to the hospital for weakness and pre- syncope. The patient was seen this morning on rounds, daughters are at the bedside. The patient is very altered today. She is oriented to self only. Speaking phrases that are nonsensical or sometimes jibberish. The patient has no focal deficits. This is likely the patient's UTI presenting as acute delirium. She had periods today of dyspnea, requiring as needed nebulizer treatments. Unfortunately, the patient's health insurance does not pay for long-term care. Family is unable to care for patient at home. At this point, the most appropriate option would be hospice. Family expressed the desire to get second opinion from Dr. Rios. Will continue to follow-up with patient's daughters during daily rounding. Will require assistance of discharge planning. Reason For Visit: RAPID ATRIAL FIBRILLATION Physical Exam Vital Signs: Temp Pulse Resp BP Pulse Ox 98.5 F 79 20 126/49 H 99 09/01/18 15:39 09/01/18 15:39 09/01/18 15:39 09/01/18 15:39 09/01/18 15:39 Intake & Output 08/31/18 09/01/18 09/02/18 06:59 06:59 06:59 Intake Total 650 475 50 Output Total 825 525 Balance -175 -50 50 Weight 70.6 kg 71.2 kg General appearance: PRESENT: well-developed, well-nourished Head exam: PRESENT: atraumatic Eye exam: PRESENT: conjunctival injection Mouth exam: PRESENT: moist Results Laboratory Results: 08/31/18 04:00 08/31/18 04:00 08/28/18 08/28/18 08/28/18 08:45 08:45 11:35 Creatine Kinase 51 50 CK-MB (CK-2) 2.13 Troponin I 0.044 NT-Pro-B Natriuret Pep 6970 H 08/28/18 11:35 Creatine Kinase CK-MB (CK-2) 2.39 Troponin I 0.057 NT-Pro-B Natriuret Pep Impressions: Chest X-Ray 08/28/18 08:42 IMPRESSION: Possible small right pleural effusion and/or pleural thickening. No focal airspace opacity. Cardiomegaly unchanged from prior. Chest CT 08/28/18 08:45 IMPRESSION: MODERATE BILATERAL PLEURAL EFFUSIONS, RIGHT GREATER THAN LEFT, WITH BASILAR ATELECTASIS. NODULAR DENSITY IN THE LATERAL LEFT LUNG BASE MAY BE DUE TO ATELECTASIS OR INFILTRATE. CANNOT EXCLUDE MASS LESION. IF THIS FINDING IS PERSISTENT AND DOES NOT RESOLVE WITH TREATMENT, THEN MAY REQUIRE PET SCAN FOR FURTHER EVALUATION. Venous Doppler Study 08/29/18 00:00 IMPRESSION: NO EVIDENCE DVT OR SVT RIGHT ARM. Status: Imported from PACS Assessment and Plan - Diagnosis (1) Atrial fibrillation Qualifiers: Atrial fibrillation type: unspecified Qualified Code(s): I48.91 - Unspecified atrial fibrillation Is this a current diagnosis for this admission?: Yes Plan: New onset. No cardiac history. Rate controlled today on PO diltiazem CHADsVASC2 3. Not a candidate for anticoagulation due to recurrent falls, bleeding tendency, underlying T-cell lymphoma. Per family patient cannot tolerate aspirin as she has had epistaxis due to aspirin. Initially on Cardizem drip, switched to p.o. Cardizem (2) Pre-syncope Is this a current diagnosis for this admission?: Yes Plan: Due to #1. Monitor vitals. Monitor hemodynamics. (3) Anemia Qualifiers: Chronic kidney disease stage: stage 3 (moderate) Is this a current diagnosis for this admission?: Yes Plan: Stemming from CKD and underlying T-cell lymphoma. Hgb increased from 6.2-->8.4 Transfuse if Hgb<8.0 No obvious source of blood loss, possibly slow leak from myocytis lesions Followed by Dr. Castelan nephrology as outpatient. Required iron transfusion and PRBC transfusion in the past. Now s/p iron infusion and procrit 48hrs ago (4) CHF (congestive heart failure) Qualifiers: Heart failure type: unspecified Heart failure chronicity: unspecified Qualified Code(s): I50.9 - Heart failure, unspecified Is this a current diagnosis for this admission?: Yes Plan: Based on physical examination and laboratory finding. BNP more than 6000. Discussed with Dr. Thomas, he states the patient does not need an ECHO Monitor volume status Low-dose diuretics guided by her vitals/clinical presentation Cardiac diet. (5) CKD (chronic kidney disease) Is this a current diagnosis for this admission?: Yes Plan: Followed by Dr. Castelan as an outpatient (6) Diabetes Qualifiers: Diabetes mellitus type: type 2 Is this a current diagnosis for this admission?: Yes Plan: Controlled Continue diabetic diet, sliding scale insulin and accucheks ACHS. 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 Follwed by Dr. Rios, oncologist, as outpatient. Patient refused chemotherapy but has received radiation 3 times. Continue wound care per nursing and cover wounds with soft silicone dressing Patient will require follow up with [facility] wound care clinic following discharge (8) T-cell lymphoma Is this a current diagnosis for this admission?: Yes Plan: History of mycosis fungoides Followed by Dr. Rios, oncologist, as outpatient. Per family she has refused chemotherapy but has received radiation [address] Rios - Time Time Spent with patient: 15-24 minutes Medications reviewed and adjusted accordingly: Yes Anticipated discharge: Hospice Within: within 48 hours - Inpatient Certification Based on my medical assessment, after consideration of the patient's comorbidities, presenting symptoms, or acuity I expect that the services needed warrant INPATIENT care.: Yes I certify that my determination is in accordance with my understanding of Medicare's requirements for reasonable and necessary INPATIENT services [42 CFR 412.3e].: Yes
[2018-09-02] MEDS: LEVALBUTEROL HCL NEB 0.63 MG/3 ML AMPUL NEB PRN (08:56)
[2018-09-02] MEDS: CEFEPIME HCL 2 GM in DEXTROSE 5%-WATER 50 ML IV SCH (10:06)
[2018-09-02] MEDS: FAMOTIDINE 20 MG TABLET PO SCH (12:23)
[2018-09-02] MEDS: DILTIAZEM HCL 120 MG CAP.SR.24H PO SCH ×2 (12:23→21:32)
[2018-09-02] MEDS ORDERED: GLYCOPYRROLATE INJ 0.4 MG/2 ML VIAL IV PRN (20:05)
[2018-09-02] MEDS ORDERED: HALOPERIDOL LACTATE INJ 5 MG/1 ML VIAL IV PRN (20:07)
[2018-09-02] MEDS: LORAZEPAM INJ 2 MG/1 ML VIAL IV PRN (20:51)
--- NOTE | 2018-09-02 22:07 | PDOC PROGRESS REPORT ---
Subjective Progress Note for:: 09/02/18 Subjective:: HUSSAIN MORRISSEY is a 87 year old female past medical history of diabetes diet controlled, T-cell lymphoma diagnosed in [address] Jaimee Rios, has refused chemotherapy, received XRT 3 times, left breast and back lymph nodes removed in 2017. Patient was brought to the hospital for weakness and pre- syncope. The patient was seen this morning on rounds, daughters are at the bedside. They are requesting to place the patient under hospice care. They want to keep her comfortable and are not interested in heroic measures. They did state they would like to complete the abx regimen the patient is receiving for her UTI. They are requesting she go to [facility] for inpatient hospice (if possible) because of it's proximity to home. Will notify Case Management. Reason For Visit: RAPID ATRIAL FIBRILLATION Physical Exam Vital Signs: Temp Pulse Resp BP Pulse Ox 98.0 F 69 16 119/47 L 97 09/02/18 12:09 09/02/18 15:43 09/02/18 15:43 09/02/18 12:09 09/02/18 15:43 Intake & Output 09/01/18 09/02/18 09/03/18 06:59 06:59 06:59 Intake Total 174 992 9005 Output Total 525 480 250 Balance -50 -355 925 Weight 71.2 kg 70 kg General appearance: PRESENT: well-developed, well-nourished Head exam: PRESENT: atraumatic Eye exam: PRESENT: conjunctival injection, PERRLA Mouth exam: PRESENT: moist, tongue midline Neck exam: PRESENT: full ROM Respiratory exam: PRESENT: clear to auscultation edinson, symmetrical, unlabored Cardiovascular exam: PRESENT: irregular rhythm - AFIB Pulses: PRESENT: normal radial pulses, normal dorsalis pedis pul Vascular exam: PRESENT: normal capillary refill GI/Abdominal exam: PRESENT: soft. ABSENT: distended, tenderness Rectal exam: PRESENT: deferred Extremities exam: ABSENT: full ROM Musculoskeletal exam: ABSENT: full ROM Neurological exam: PRESENT: awake, oriented to person, oriented to place, oriented to time, oriented to situation. ABSENT: alert Skin exam: PRESENT: dry, erythema, other - SKIN LESIONS TO LOWER BACK AND BUTTOCKS. WEEPING. CRUSTING. DO NOT APPEAR INFECTED.. ABSENT: intact Results Laboratory Results: 08/31/18 04:00 08/31/18 04:00 08/28/18 09:32 Blood Blood Culture - Final NO GROWTH IN 5 DAYS 08/28/18 08:56 Blood Blood Culture - Final NO GROWTH IN 5 DAYS 08/28/18 08/28/18 08/28/18 08:45 08:45 11:35 Creatine Kinase 51 50 CK-MB (CK-2) 2.13 Troponin I 0.044 NT-Pro-B Natriuret Pep 6970 H 08/28/18 11:35 Creatine Kinase CK-MB (CK-2) 2.39 Troponin I 0.057 NT-Pro-B Natriuret Pep Impressions: Chest X-Ray 08/28/18 08:42 IMPRESSION: Possible small right pleural effusion and/or pleural thickening. No focal airspace opacity. Cardiomegaly unchanged from prior. Chest CT 08/28/18 08:45 IMPRESSION: MODERATE BILATERAL PLEURAL EFFUSIONS, RIGHT GREATER THAN LEFT, WITH BASILAR ATELECTASIS. NODULAR DENSITY IN THE LATERAL LEFT LUNG BASE MAY BE DUE TO ATELECTASIS OR INFILTRATE. CANNOT EXCLUDE MASS LESION. IF THIS FINDING IS PERSISTENT AND DOES NOT RESOLVE WITH TREATMENT, THEN MAY REQUIRE PET SCAN FOR FURTHER EVALUATION. Venous Doppler Study 08/29/18 00:00 IMPRESSION: NO EVIDENCE DVT OR SVT RIGHT ARM. Status: Imported from PACS Assessment and Plan - Diagnosis (1) Atrial fibrillation Qualifiers: Atrial fibrillation type: unspecified Qualified Code(s): I48.91 - Unspecified atrial fibrillation Is this a current diagnosis for this admission?: Yes Plan: New onset. No cardiac history. Rate controlled today on PO diltiazem CHADsVASC2 3. Not a candidate for anticoagulation due to recurrent falls, bleeding tendency, underlying T-cell lymphoma. Per family patient cannot tolerate aspirin as she has had epistaxis due to aspirin. Initially on Cardizem drip, switched to p.o. Cardizem No plans for cardioversion, or IV cardizem if pt should go into AFIB w/RVR or any other arrhythmia now that she is comfort care (2) Pre-syncope Is this a current diagnosis for this admission?: Yes Plan: Due to #1. Monitor vitals. Monitor hemodynamics. (3) Anemia Qualifiers: Chronic kidney disease stage: stage 3 (moderate) Is this a current diagnosis for this admission?: Yes Plan: Stemming from CKD and underlying T-cell lymphoma. Hgb increased from 6.2-->8.4 No obvious source of blood loss, possibly slow leak from myocytis lesions Followed by Dr. Castelan nephrology as outpatient. Required iron transfusion and PRBC transfusion in the past. Now s/p iron infusion and procrit 48hrs ago No plans for transfusion now that she is comfort care (4) CHF (congestive heart failure) Qualifiers: Heart failure type: unspecified Heart failure chronicity: unspecified Qualified Code(s): I50.9 - Heart failure, unspecified Is this a current diagnosis for this admission?: Yes Plan: Based on physical examination and laboratory finding. BNP more than 6000. Discussed with Dr. Thomas, he states the patient does not need an ECHO Monitor volume status Low-dose diuretics guided by her vitals/clinical presentation (5) CKD (chronic kidney disease) Is this a current diagnosis for this admission?: Yes Plan: Followed by Dr. 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 Follwed by Dr. Rios, oncologist, as outpatient. Patient refused chemotherapy but has received radiation 3 times. Wound care as needed - directed by nursing staff No need for daily/qshift dressing changes now that she is comfort care (8) T-cell lymphoma Is this a current diagnosis for this admission?: Yes Plan: History of mycosis fungoides Followed by Dr. Rios, oncologist, as outpatient. Per family she has refused chemotherapy but has received radiation [address] Rios Family requesting comfort care measures and would like patient moved to inpatient hospice - Time Time Spent with patient: 25-34 minutes Medications reviewed and adjusted accordingly: Yes Anticipated discharge: Hospice Within: within 48 hours - Inpatient Certification Based on my medical assessment, after consideration of the patient's comor bidities, presenting symptoms, or acuity I expect that the services needed warrant INPATIENT care.: Yes I certify that my determination is in accordance with my understanding of Medicare's requirements for reasonable and necessary INPATIENT services [42 CFR 412.3e].: Yes Medical Necessity: Risk of Complication if Not Cared For in Hospital
[2018-09-03] MEDS: GENTAMICIN SULFATE 0.3% OPH SOLN 5 ML OU SCH ×7 (01:06→23:40)
[2018-09-03] MEDS: HYDROMORPHONE HCL INJ/PF 2 MG/ML AMPULE IV PRN ×3 (04:46→17:50)
[2018-09-03] MEDS: LORAZEPAM INJ 2 MG/1 ML VIAL IV PRN ×3 (09:17→23:39)
[2018-09-03] MEDS: DILTIAZEM HCL 120 MG CAP.SR.24H PO SCH ×2 (09:18→22:45)
[2018-09-03] MEDS: CEFEPIME HCL 2 GM in DEXTROSE 5%-WATER 50 ML IV SCH (10:54)
[2018-09-03 16:07] LABS: MEAN CORPUSCULAR HEMOGLOBIN 29.4 pg (27.0-33.4)
[2018-09-03 16:24] LABS: HEMOGLOBIN 9.5 g/dL (12.0-15.5); MEAN CORPUSCULAR HGB CONC 31.7 g/dL (32.0-36.0); MEAN CORPUSCULAR VOLUME 93 fl (80-97); PLATELET COUNT 408 10^3/uL (150-450); RED BLOOD COUNT 3.25 10^6/uL (3.72-5.28); RED CELL DISTRIBUTION WIDTH 17.9 % (11.5-14.0); WHITE BLOOD COUNT 12.6 10^3/uL (4.0-10.5)
[2018-09-04] MEDS: HYDROMORPHONE HCL INJ/PF 2 MG/ML AMPULE IV PRN ×6 (00:32→19:55)
[2018-09-04] MEDS: GENTAMICIN SULFATE 0.3% OPH SOLN 5 ML OU SCH ×4 (05:02→15:42)
--- NOTE | 2018-09-04 07:27 | PDOC TRANSFER SUMMARY ---
Addendum entered and electronically signed by RITA MUELLER NP-C 09/04/18 15:08: Provider Note Provider Note: Reviewed overnight events and vital signs. Briefly met with the patient's daughter at the patient's bedside today. Patient was noted to be resting comfortably on supplemental oxygen at 2 L/min via nasal cannula with even and unlabored respirations. The patient was sleeping soundly; I did not wake her today. Discussed with the patient's daughter the plan for the patient to discharge to [facility] via [facility] transport arranged for approximately 4:30 this afternoon. Answered the daughter's questions regarding end-of-life/active dying process. At this time, patient remains stable for transfer to [facility] inpatient facility. Original Note: General Admission Date/PCP: 08/28/18 13:04 RICK COURTNEY DO Admission Date: 08/28/18 Transfer Date: 09/04/18 Resuscitation Status: Do Not Resuscitate - Transfer Diagnosis (1) Atrial fibrillation Is this a current diagnosis for this admission?: Yes (2) Pre-syncope Is this a current diagnosis for this admission?: Yes (3) Anemia Is this a current diagnosis for this admission?: Yes (4) CHF (congestive heart failure) Is this a current diagnosis for this admission?: Yes (5) CKD (chronic kidney disease) Is this a current diagnosis for this admission?: Yes (6) Diabetes Is this a current diagnosis for this admission?: Yes (7) Mycosis fungoides Is this a current diagnosis for this admission?: No (8) T-cell lymphoma Is this a current diagnosis for this admission?: Yes - Transfer Medications Home Medications: Acetaminophen [Tylenol Extra Strength 500 mg Tablet] 1 tab PO QHS 08/28/18 Acetaminophen [Tylenol Extra Strength 500 mg Tablet] 2 tab PO NOON 08/28/18 Clobetasol Propionate [Temovate 0.05% Topical Soln 25 Ml Bottle] 1 applic TOP QHS 08/28/18 Cyanocobalamin (Vitamin B-12) [Vitamin B-12 1000 Mcg Tablet] 1 tab PO DAILY 08/28/18 Ferrous Sulfate [Feosol 325 mg Tablet] 325 mg PO BIDBS 08/28/18 Furosemide [Lasix 20 mg Tablet] 20 mg PO QAM 08/28/18 Hydrocodone/Acetaminophen [Jackson 5-325 mg Tablet] 1 tab PO BIDBS 08/28/18 Multivitamin [Tab-A-Khushi (Multiple Vitamin) Tablet] 1 tab PO DAILY 08/28/18 Petrolatum,White [Aquaphor] 1 applic TP QHS 08/28/18 Prazosin HCl [Minipress] 2 mg PO Q8 08/28/18 Silver Sulfadiazine [Silvadene 1% Cream 50 gm Tube] 1 applic TP DAILY 08/28/18 Simvastatin [Zocor 20 mg Tablet] 20 mg PO QHS 08/28/18 Transfer Medications: Current Medications Acetaminophen (Tylenol 325 Mg Tablet) 650 mg PO Q4HP PRN PRN Reason: FOR PAIN SCALE 1-2 Stop: 09/27/18 14:35 Last Admin: 08/28/18 20:30 Dose: 650 mg Documented by: Diltiazem HCl (Cardizem Cd 120 Mg Capsule) 120 mg PO Q12 [facility] Stop: 09/28/18 21:59 Last Admin: 09/03/18 22:45 Dose: Not Given Documented by: Gentamicin Sulfate (Garamycin 0.3% Oph Soln 5 Ml) 2 drop OU Q4A [facility] Stop: 09/08/18 15:59 Last Admin: 09/04/18 05:02 Dose: Not Given Documented by: Glycopyrrolate (Robinul Inj 0.4 Mg/2 Ml Vial) 0.4 mg IV Q6HP PRN PRN Reason: upper airway secretions Stop: 10/02/18 20:04 Haloperidol Lactate (Haldol 5 Mg/Ml Inj 1 Ml Vial) 2 mg IV Q4HP PRN PRN Reason: RESTLESSNESS/AGITATION Stop: 10/02/18 20:06 Hydromorphone HCl (Dilaudid Inj/Pf 2 Mg/Ml Ampule) 0.5 mg IV Q1HP PRN PRN Reason: FOR PAIN SCALE 4-5 Stop: 09/05/18 11:48 Last Admin: 09/04/18 04:00 Dose: 0.5 mg Documented by: Cefepime HCl 2 gm/ Dextrose 50 mls @ 100 mls/hr IV DAILY [facility] Stop: 09/06/18 09:59 Last Infusion: 09/03/18 11:38 Dose: Infused Documented by: Levalbuterol HCl (Xopenex Neb 0.63 Mg/3 Ml Ampul) 0.63 mg NEB RTQ6HP PRN PRN Reason: SHORTNESS OF BREATH Stop: 09/27/18 14:35 Last Admin: 09/02/18 08:56 Dose: 0.63 mg Documented by: Lorazepam (Ativan Inj 2 Mg/1 Ml Vial) 0.5 mg IV Q6HP PRN PRN Reason: ANXIETY/AGITATION Stop: 09/09/18 20:06 Last Admin: 09/03/18 23:39 Dose: 0.5 mg Documented by: Ondansetron HCl (Zofran Odt 4 Mg Tablet) 4 mg PO Q6HP PRN PRN Reason: FOR NAUSEA/VOMITING Stop: 09/27/18 14:35 Tramadol HCl (Ultram 50 Mg Tablet) 50 mg PO Q8HP PRN PRN Reason: FOR PAIN SCALE 3-4 Stop: 09/05/18 11:48 Last Admin: 09/01/18 15:46 Dose: 50 mg Documented by: - Allergies Allergies/Adverse Reactions: No Known Allergies Allergy (Unverified 04/12/18 10:35) Hospital Course Hospital Course: HUSSAIN MORRISSEY is a 87 year old female past medical history of diabetes diet controlled, T-cell lymphoma diagnosed in [address] Jaimee Rios, has refused chemotherapy, received XRT 3 times, left breast and back lymph nodes removed in 2017. Patient was brought to the hospital for weakness and pre- syncope. Discovered to be in AFIB, this is a new diagnosis for her. The patient was also noted to be anemic (Hgb 6.2), received 2 U PRBC. Her bleeding/oozing mycosis fungoides lesions were believed to be the source of her anemia. Her HR w as controlled with a cardizem gtt and she was eventually transitioned to PO cardizem. Initial UA was not indicative of UTI but urine culture was sent. Culture was positive for MDR e.coli. The patient was unable to verbalize if she was having urinary symptoms. Repeat UA indicative of UTI (large leuk esterase and 98 WBC) so she was empirically started on cefepime. PT/OT attempted to work with the patient, she required 2-3 people just to get her to the edge of the bed. Rehab was very painful for her. The patient's mental status continued to decline, she became more and more confused. Lengthy discussion with the family about palliative care and hospice. The patient is hospice appropriate and Kiley RN from [facility] discussed treatment options with family. Initial plan was to send the patient to a terminal operations manager care facility under palliative care but unfortunately her insurance would not cover half-way care. Family has repeatedly stated they cannot care for the patient at home. Finally, the decision was made to send the patient to inpatient hospice. Physical Exam Vital Signs: Temp Pulse Resp BP Pulse Ox 98.0 F 70 18 146/58 H 90 L 09/03/18 19:06 09/04/18 02:00 09/03/18 19:06 09/03/18 19:06 09/03/18 19:06 Intake & Output 09/02/18 09/03/18 09/04/18 06:59 06:59 06:59 Intake Total 125 1230 50 Output Total 480 450 450 Balance -355 780 -400 Weight 70 kg 70 kg 69.3 kg General appearance: PRESENT: well-developed, well-nourished Eye exam: PRESENT: conjunctival injection, PERRLA Mouth exam: PRESENT: moist, tongue midline Teeth exam: PRESENT: poor dentation Neck exam: PRESENT: full ROM Respiratory exam: PRESENT: clear to auscultation edinson, symmetrical, unlabored Cardiovascular exam: PRESENT: irregular rhythm - AFIB - RATE CONTROLLED Pulses: PRESENT: normal radial pulses Vascular exam: PRESENT: pallor GI/Abdominal exam: PRESENT: soft, tenderness - GENERALIZED PAIN, PATIENT IS TENDER ALL OVER Rectal exam: PRESENT: deferred Extremities exam: ABSENT: full ROM Musculoskeletal exam: ABSENT: ambulatory, deformity, full ROM Neurological exam: PRESENT: awake. ABSENT: alert, oriented to person, oriented to place, oriented to time, oriented to situation Skin exam: PRESENT: other - SKIN LESIONS TO LOWER BACK AND BUTTOCKS. WEEPING. CRUSTING. DO NOT APPEAR INFECTED.. ABSENT: intact Results Laboratory Results: 09/03/18 15:50 08/31/18 04:00 09/03/18 15:50 WBC 12.6 H RBC 3.25 L Hgb 9.5 L Hct 30.0 L MCV 93 D MCH 29.4 MCHC 31.7 L RDW 17.9 H Plt Count 408 08/28/18 08/28/18 08/28/18 08:45 08:45 11:35 Creatine Kinase 51 50 CK-MB (CK-2) 2.13 Troponin I 0.044 NT-Pro-B Natriuret Pep 6970 H 08/28/18 11:35 Creatine Kinase CK-MB (CK-2) 2.39 Troponin I 0.057 NT-Pro-B Natriuret Pep Impressions: Chest X-Ray 08/28/18 08:42 IMPRESSION: Possible small right pleural effusion and/or pleural thickening. No focal airspace opacity. Cardiomegaly unchanged from prior. Chest CT 08/28/18 08:45 IMPRESSION: MODERATE BILATERAL PLEURAL EFFUSIONS, RIGHT GREATER THAN LEFT, WITH BASILAR ATELECTASIS. NODULAR DENSITY IN THE LATERAL LEFT LUNG BASE MAY BE DUE TO ATELECTASIS OR INFILTRATE. CANNOT EXCLUDE MASS LESION. IF THIS FINDING IS PERSISTENT AND DOES NOT RESOLVE WITH TREATMENT, THEN MAY REQUIRE PET SCAN FOR FURTHER EVALUATION. Venous Doppler Study 08/29/18 00:00 IMPRESSION: NO EVIDENCE DVT OR SVT RIGHT ARM. Status: Imported from PACS Plan Discharge Plan: DISCHARGE TO INPATIENT HOSPICE Time Spent: Greater than 30 Minutes
[2018-09-04] MEDS: LORAZEPAM INJ 2 MG/1 ML VIAL IV PRN ×2 (07:47→13:44)
[2018-09-04 08:01] VITALS: BP 138/62
[2018-09-04] MEDS: DILTIAZEM HCL 120 MG CAP.SR.24H PO SCH (09:31)
[2018-09-04] MEDS: CEFEPIME HCL 2 GM in DEXTROSE 5%-WATER 50 ML IV SCH (09:33)
== END 2018-09-04 20:30 | disposition short-term general hospital (02) | DRG 309 ==
LOC: ER 07:59 → UNDOADMIN 13:04 → EH 13:04 → 3W 16:09 → EH 16:09
PROVIDERS: ADMIT Internal Medicine; ATTEND Internal Medicine
PROC: 02HV33Z Insertion of Infusion Device into Superior Vena Cava, Percutaneous Approach (ICD-10-PCS; principal; 2018-08-28)
PROC: B548ZZA Ultrasonography of Superior Vena Cava, Guidance (ICD-10-PCS; 2018-08-28)
PROC: 30233N1 Transfusion of Nonautologous Red Blood Cells into Peripheral Vein, Percutaneous Approach (ICD-10-PCS; 2018-08-28)
DX: I48.91 Unspecified atrial fibrillation (principal); C84.08 Mycosis fungoides, lymph nodes of multiple sites; N39.0 Urinary tract infection, site not specified; I13.0 Hypertensive heart and chronic kidney disease with heart failure and stage 1 through stage 4 chronic kidney disease, or unspecified chronic kidney disease; D63.0 Anemia in neoplastic disease; B96.20 Unspecified Escherichia coli [E. coli] as the cause of diseases classified elsewhere; E11.22 Type 2 diabetes mellitus with diabetic chronic kidney disease; D63.1 Anemia in chronic kidney disease; N18.3 Chronic kidney disease, stage 3 (moderate); I50.9 Heart failure, unspecified; Z92.3 Personal history of irradiation; Z66 Do not resuscitate
CPT/HCPCS: 36415; 36430; 51701; 71045; 71250; 80048; 80053; 81001; 82550; 82553; 82607; 82728; 82746; 82962; 83540; 83550; 83605; 83735; 83880; 84443; 84484; 85025; 85027; 85045; 85610; 85730; 86850; 86900; 86901; 86920; 87040; 87086; 87088; 87186; 93005; 93010; 93971; 94640; 94660; 96374; 96375; 99285; J0692; J1160; J1170; J1439; J1940; J2060; J3490; J7050; J7120; J7614; P9016; Q4081